=== PATIENT | female | born 1995 | race African-American/Black ===

== ENCOUNTER → 2018-10-02 | Outpatient (CLI) | payer OTHER ==
[2015-11-02 04:30] VITALS: BP 127/81
[~2018-10-02] MED LIST: BUTA1TAB23 PO; ONDA4TAB12 PO
[2018-10-04 19:09] LABS: ANA INTERP Positive (.)
== END | disposition home or self-care (01) ==
LOC: LAB 14:49
DX: G43.009 Migraine without aura, not intractable, without status migrainosus (principal)
CPT/HCPCS: 36415; 85651; 86038; 86140

== ENCOUNTER 2018-10-04 01:23 | Emergency (ER) | payer OTHER ==
[~2018-10-04] VITALS: Ht 160 cm; Wt 55.3 kg
--- NOTE | 2018-10-04 02:00 | PHYS DOC ---
Past History Past Medical History: Cancer, Seizure, Other Past Surgical History: No Surgical History Smoking: Cigarettes Alcohol Use: None Drug Use: Benzodiazepine, Marijuana Adult General Chief Complaint Chief Complaint: SEIZURE HPI HPI Patient is a 23-year-old female who presents with complaint of having had seizure-like activity earlier this evening. Patient describes the seizure-like activity as shaking all over, uncontrollably while she was very anxious. She states that she was aware during the entire episode. 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 Patient also complains of what she describes as severe upper abdominal pain for the last 2 months and states that she was seen by her primary provider today and was just diagnosed with irritable bowel syndrome. She states that she has had some nausea and had some diarrhea earlier today. She states that she has not had any imaging studies for her abdominal pain. She does indicate that she is on her menstrual cycle currently. She rates the pain in her abdomen at a 10 out of 10 but had just told her nurse that she had no pain at all. Review of Systems Review of Systems Constitutional: Denies fever or chills [] Respiratory: Denies cough or shortness of breath [] Cardiovascular: No additional information not addressed in HPI [] GI: Complains of abdominal pain with nausea and diarrhea [] Musculoskeletal: Denies back pain or joint pain [] Neurologic: Patient reports seizure-like activity[] All other systems were reviewed and found to be within normal limits, except as documented in this note. Current Medications Current Medications Current Medications Medications (Trade) Dose Ordered Sig/Nacho Start Time Stop Time Status Last Admin Dose Admin Ketorolac Tromethamine (Toradol 30mg Vial) 30 mg 1X ONCE 10/04/18 02:00 10/04/18 02:01 UNV Ondansetron HCl (Zofran) 4 mg 1X ONCE 10/04/18 02:00 10/04/18 02:01 UNV Sodium Chloride 1,000 ml @ 1,000 mls/hr Q1H 10/04/18 01:51 10/04/18 02:50 UNV Allergies Allergies Allergies Coded Allergies Type Severity Reaction Last Updated Verified No Known Drug Allergies 11/02/15 No Physical Exam Physical Exam Constitutional: Well developed, well nourished, no acute distress, appears anxious. [] HENT: Normocephalic, atraumatic, bilateral external ears normal, oropharynx moist, no oral exudates, nose normal. [] Eyes: PERRLA, EOMI, conjunctiva normal, no discharge. [] Neck: Normal range of motion, no tenderness, supple, no stridor. [] Cardiovascular: Regular rate and rhythm[] Lungs & Thorax: Bilateral breath sounds clear to auscultation [] Abdomen: Bowel sounds normal, soft, with reported epigastric tenderness. [] Skin: Warm, dry, no erythema, no rash. [] Extremities: No tenderness, no cyanosis, no clubbing, ROM intact, no edema. [] Neurologic: Alert and oriented X 3, no focal deficits noted. [] EKG EKG [] Radiology/Procedures Radiology/Procedures [] Impressions: PROCEDURE: CT ABD PELV W/ IV CONTRST ONLY INDICATION: upper abdominal pain, mostly epigastric, n/v diarrhea
no hx of surgeries in the abdomen
Gave Omni 300 75ml iv - no oral COMPARISON: None. TECHNIQUE: Axial CT images obtained through the abdomen and pelvis with contrast. One or more of the following individualized dose reduction techniques were utilized for this examination: 1. Automated exposure control; 2. Adjustment of the mA and/or kV according to patient size; 3. Use of iterative reconstruction technique. FINDINGS: Abdominal aorta not grossly aneurysmal. No intrahepatic bile duct dilation. The pancreas enhances. Spleen unremarkable. No left-sided hydronephrosis. No right-sided hydronephrosis. There is some heterogenous enhancement of the kidneys. Urinary bladder is partially distended. Within the right adnexa there is a low-density suspected cystic lesion measuring up to approximately 33 mm. Small free fluid in the pelvis. The suspected appendix appears filled with air without definitive adjacent inflammatory changes. IMPRESSION: 1. No hydronephrosis. 2. The appendix is air-filled without definite adjacent inflammation. 3. At the right adnexa there is a suspected cystic lesion identified. There is also a suspected calcification at the right ovary. 4. Heterogenous enhancement of the kidneys. This is most likely secondary to the phase of contrast unless there is clinical concern for a pathologic process such as pyelonephritis which would be considered less likely cause of this finding. Electronically signed by: Daisy Aleman MD (10/04/2018 4:21 AM) [facility] DICTATED AND SIGNED BY: DAISY ALEMAN MD DATE: 10/04/18 0421 Course & Med Decision Making Course & Med Decision Making Pertinent Labs and Imaging studies reviewed. (See chart for details) [] Dragon Disclaimer Dragon Disclaimer This electronic medical record was generated, in whole or in part, using a voice recognition dictation system. Departure Departure: Impression: Primary Impression: Pseudoseizure Additional Impression: Epigastric abdominal pain Disposition: HOME, SELF-CARE Condition: STABLE Referrals: BIRDIE DAVIS (PCP) Patient Instructions: Abdominal Pain, Nonepileptic Seizures Problem Qualifiers JAMEL CASTILLO Jr. DO Oct 04, 2018 02:00
[2018-10-04] MEDS ORDERED: ONDANSETRON PF 4 MG/2 ML VIAL. IV ONE (02:30)
[2018-10-04] MEDS ORDERED: IV NORMAL SALINE 1,000ML 1,000 ML IV SCH (02:30)
[2018-10-04] MEDS ORDERED: KETOROLAC 30 MG/ML VIAL. IV ONE (02:30)
[2018-10-04 02:43] LABS: BASO % 0 % (0-3); EOS % 0 % (0-3); HEMATOCRIT 37.2 % (36.0-47.0); HEMOGLOBIN 12.1 g/dL (12.0-15.5); LYMPH # 1.7 x10^3/uL (1.0-4.8); LYMPH % 30 % (24-48); MEAN CORPUSCULAR HEMOGLOBIN 30 pg (25-35); MEAN CORPUSCULAR HGB CONC 33 g/dL (31-37); MEAN CORPUSCULAR VOLUME 91 fL (79-100); MONO # 0.4 x10^3/uL (0.0-1.1); MONO % 6 % (0-9); NEUT # 3.7 x10^3uL (1.8-7.7); NEUT % 63 % (31-73); PLATELET COUNT 233 x10^3/uL (140-400); RED BLOOD COUNT 4.11 x10^6/uL (3.50-5.40); RED CELL DISTRIBUTION WIDTH 12.4 % (11.5-14.5); WHITE BLOOD COUNT 5.8 x10^3/uL (4.0-11.0)
[2018-10-04 02:47] LABS: BACTERIA,URINE 0 /HPF (0-FEW); BILIRUBIN,URINE NEG (NEG); CLARITY,URINE CLEAR; COLOR,URINE YELLOW; GLUCOSE,URINE NEG (NEG); NITRITE,URINE NEG (NEG); RBC,URINE 0 /HPF (0-2); SQUAMOUS EPITHELIAL CELL,UR FEW /LPF; UROBILINOGEN,URINE 0.2 mg/dL (0.2 mg/dL); WBC,URINE OCC /HPF (0-4)
[2018-10-04 02:52] LABS: BARBITURATES NEG (NEG); BENZODIAZEPINES NEG (NEG); CANNABINOIDS POS (NEG); COCAINE NEG (NEG); METHADONE NEG (NEG); OPIATES NEG (NEG); PHENCYCLIDINE NEG (NEG)
[2018-10-04 02:55] LABS: ALBUMIN 3.8 g/dL (3.4-5.0); ALBUMIN/GLOBULIN RATIO 1.1 (1.0-1.7); CALCIUM 9.2 mg/dL (8.5-10.1); CREATININE 0.9 mg/dL (0.6-1.0); GFR 92.3; POTASSIUM 3.8 mmol/L (3.5-5.1); TOTAL BILIRUBIN 0.2 mg/dL (0.2-1.0); TOTAL PROTEIN 7.2 g/dL (6.4-8.2)
[2018-10-04 02:56] LABS: AMPHETAMINE/METHAMPHETAMINE NEG (NEG)
[2018-10-04 03:04] LABS: U PREG PATIENT NEGATIVE (NEG)
[2018-10-04] MEDS ORDERED: CONTRAST GIVEN MC PRN (03:30)
[2018-10-04] MEDS ORDERED: IOHEXOL 300 MG/ML 75 ML VIAL. IV ONE (03:30)
--- NOTE | 2018-10-04 04:24 | RAD ---
INDICATION: upper abdominal pain, mostly epigastric, n/v diarrhea
no hx of surgeries in the abdomen
Gave Omni 300 75ml iv - no oral COMPARISON: None. TECHNIQUE: Axial CT images obtained through the abdomen and pelvis with contrast. One or more of the following individualized dose reduction techniques were utilized for this examination: 1. Automated exposure control; 2. Adjustment of the mA and/or kV according to patient size; 3. Use of iterative reconstruction technique. FINDINGS: Abdominal aorta not grossly aneurysmal. No intrahepatic bile duct dilation. The pancreas enhances. Spleen unremarkable. No left-sided hydronephrosis. No right-sided hydronephrosis. There is some heterogenous enhancement of the kidneys. Urinary bladder is partially distended. Within the right adnexa there is a low-density suspected cystic lesion measuring up to approximately 33 mm. Small free fluid in the pelvis. The suspected appendix appears filled with air without definitive adjacent inflammatory changes. IMPRESSION: 1. No hydronephrosis. 2. The appendix is air-filled without definite adjacent inflammation. 3. At the right adnexa there is a suspected cystic lesion identified. There is also a suspected calcification at the right ovary. 4. Heterogenous enhancement of the kidneys. This is most likely secondary to the phase of contrast unless there is clinical concern for a pathologic process such as pyelonephritis which would be considered less likely cause of this finding. Electronically signed by: Mj Aleman MD (10/04/2018 4:21 AM) [facility]
[2018-10-04 04:40] VITALS: BP 128/69
== END 2018-10-04 05:08 | disposition home or self-care (01) ==
LOC: ER 01:23
DX: G40.89 Other seizures (principal); R10.13 Epigastric pain; R19.7 Diarrhea, unspecified; F17.210 Nicotine dependence, cigarettes, uncomplicated
CPT/HCPCS: 36415; 74177; 80053; 80307; 81001; 81025; 83690; 85025; 96361; 96374; 96375; 99284; J1885; J2405; Q9967; J7030

== ENCOUNTER 2018-10-07 03:27 | Emergency (ER) | payer OTHER ==
[~2018-10-07] VITALS: Ht 162.6 cm; Wt 59.5 kg
--- NOTE | 2018-10-07 03:55 | ED.ADGEN ---
Past History Past Medical History: Endometriosis, Migraines, Seizure, Other Past Surgical History: No Surgical History Smoking: Cigarettes Alcohol Use: Occasionally Drug Use: None Adult General Chief Complaint Chief Complaint headache HPI HPI 23 years old female presented emergency department with the headache described as a migraine she stated that this is similar to the previous migraines usually gets associated with nausea described her headache as a throbbing headache on the left side of her head rated 10 out of 10 no neck stiffness no fever no chills no numbness no weakness she denies being Review of Systems Review of Systems Constitutional: Denies fever or chills [] Eyes: Denies change in visual acuity, redness, or eye pain [] HENT: Denies nasal congestion or sore throat [] Respiratory: Denies cough or shortness of breath [] Cardiovascular: No additional information not addressed in HPI [] GI: Denies abdominal pain, nausea, vomiting, bloody stools or diarrhea [] : Denies dysuria or hematuria [] Musculoskeletal: Denies back pain or joint pain [] Integument: Denies rash or skin lesions [] Neurologic: Denies focal weakness or sensory changes [] Endocrine: Denies polyuria or polydipsia [] All other systems were reviewed and found to be within normal limits, except as documented in this note. Current Medications Current Medications Current Medications Medications (Trade) Dose Ordered Sig/Nacho Start Time Stop Time Status Last Admin Dose Admin Diphenhydramine HCl (Benadryl) 25 mg 1X ONCE 10/07/18 04:00 10/07/18 04:01 UNV Ketorolac Tromethamine (Toradol Im) 60 mg 1X ONCE 10/07/18 04:00 10/07/18 04:01 UNV Prochlorperazine Edisylate (Compazine) 10 mg 1X ONCE 10/07/18 04:00 10/07/18 04:01 UNV Allergies Allergies Allergies Coded Allergies Type Severity Reaction Last Updated Verified No Known Drug Allergies 10/07/18 No Physical Exam Physical Exam Constitutional: Well developed, well nourished, no acute distress, non-toxic appearance. [] HENT: Normocephalic, atraumatic, bilateral external ears normal, oropharynx moist, no oral exudates, nose normal. [] Eyes: PERRLA, EOMI, conjunctiva normal, no discharge. [] Neck: Normal range of motion, no tenderness, supple, no stridor. [] Cardiovascular:Heart rate regular rhythm, no murmur [] Lungs & Thorax: Bilateral breath sounds clear to auscultation [] Abdomen: Bowel sounds normal, soft, no tenderness, no masses, no pulsatile masses. [] Skin: Warm, dry, no erythema, no rash. [] Back: No tenderness, no CVA tenderness. [] Extremities: No tenderness, no cyanosis, no clubbing, ROM intact, no edema. [] Neurologic: Alert and oriented X 3, normal motor function, normal sensory function, no focal deficits noted. [] Psychologic: Affect normal, judgement normal, mood normal. [] EKG EKG [] Radiology/Procedures Radiology/Procedures [] Course & Med Decision Making Course & Med Decision Making Pertinent Labs and Imaging studies reviewed. (See chart for details) [] Final Impression Final Impression [] Problems: (1) Migraine Qualifiers: Qualified Codes: G43.909 - Migraine, unspecified, not intractable, without status migrainosus Dragon Disclaimer Dragon Disclaimer This electronic medical record was generated, in whole or in part, using a voice recognition dictation system. CRUZ ACHARYA MD Oct 07, 2018 03:55
[2018-10-07] MEDS ORDERED: diphenhydrAMINE 50 MG/ML VIAL IM ONE (04:00)
[2018-10-07] MEDS ORDERED: PROCHLORPERAZINE 10 MG/2 ML VIAL. IM ONE (04:00)
[2018-10-07] MEDS ORDERED: KETOROLAC 60 MG/2 ML VIAL. IM ONE (04:00)
[2018-10-07 04:25] VITALS: BP 123/86
== END 2018-10-07 04:30 | disposition home or self-care (01) ==
LOC: ER 03:27
DX: G43.909 Migraine, unspecified, not intractable, without status migrainosus (principal); F17.210 Nicotine dependence, cigarettes, uncomplicated
CPT/HCPCS: 96372; 99283; J0780; J1200; J1885

== ENCOUNTER 2018-11-14 23:26 | Emergency (ER) | payer OTHER ==
[~2018-11-14] VITALS: Ht 162.6 cm; Wt 56.7 kg
[2018-11-14 23:26] VITALS: BP 153/96
[2018-11-15] MEDS ORDERED: ONDA4TAB12 PO (00:10)
[2018-11-15] MEDS ORDERED: BUTA1TAB23 PO (00:10)
--- NOTE | 2018-11-15 00:10 | PHYS DOC ---
Past History Past Medical History: Endometriosis, IBS, Migraines, Seizure Past Surgical History: No Surgical History Smoking: Cigarettes Alcohol Use: None Drug Use: None Adult General Chief Complaint Chief Complaint: HEADACHE HPI HPI 23-year-old female presents with report of progressive ongoing headache since 11/03/2017. Patient reports it waxes and wanes in intensity. Reports some associated nausea. Denies known trauma. Patient does have history of chronic migraines. Patient reports tonight her headache is consistent for her known chronic migraine. Reports using home prescriptions without improvement. Patient also reports history of known to a pituitary lesion which is been imaged pre viously. Patient reports she currently has a neurologist, Dr. Bunn, at [facility] who prescribes her medications. Reports she has discussed her ongoing headaches with him and he reports he has "no other treatment options" at this time. Patient is seeking secondary opinion with [facility] but is waiting for her appointment. Patient denies any trauma. Denies neck pain.. Denies fever or chills. Patient does report her headache seemed to be timed around her menstrual cycle. Patient reports she is currently on her menstrual cycle. Review of Systems Review of Systems Constitutional: Denies fever or chills [] Eyes: Denies change in visual acuity or redness; reports photophobia HENT: Denies nasal congestion or sore throat [] Respiratory: Denies cough or shortness of breath [] Cardiovascular: Denies chest pain or palpitations GI: Denies abdominal pain, vomiting, or diarrhea; reports nausea : Denies dysuria or hematuria [] Musculoskeletal: Denies back pain or joint pain [] Integument: Denies rash or skin lesions [] Neurologic: Reports headache; denies focal weakness or sensory changes [] Complete systems were reviewed and found to be within normal limits, except as documented in this note. Allergies Allergies Allergies Coded Allergies Type Severity Reaction Last Updated Verified No Known Drug Allergies 10/07/18 No Physical Exam Physical Exam Constitutional: Well developed, well nourished, no acute distress, non-toxic appearance. [] HENT: Normocephalic, atraumatic, oropharynx moist Eyes:EOMI, conjunctiva normal, no discharge, photophobia Neck: Normal range of motion, no tenderness, supple Cardiovascular: Heart rate regular rhythm Lungs & Thorax: Bilateral breath sounds clear to auscultation [] Abdomen: Soft, no tenderness Skin: Warm, dry, no erythema, no rash. [] Back: No tenderness, no CVA tenderness. [] Extremities: No tenderness, ROM intact, no edema. [] Neurologic: Alert and oriented X 3, normal motor function, normal sensory function, no focal deficits noted. [] Psychologic: Affect normal, judgement normal Current Patient Data Vital Signs Vital Signs Date Time Temp Pulse Resp B/P (MAP) Pulse Ox O2 Delivery O2 Flow Rate FiO2 11/14/18 23:26 98.2 102 14 100 Room Air EKG EKG [] Radiology/Procedures Radiology/Procedures [] Course & Med Decision Making Course & Med Decision Making Patient presents with report of acute on chronic migraine headache. Patient reports her current headache is consistent with her known migraine. Denies known trauma. Patient neurologically intact. Patient is afebrile. No meningeal signs appreciated. Symptomatic treatment provided. Patient stable for discharge with outpatient follow-up with PCP/neurologist. Discussed findings and plan with patient, who acknowledges understanding and agreement. Dragon Disclaimer Dragon Disclaimer This electronic medical record was generated, in whole or in part, using a voice recognition dictation system. Departure Departure: Impression: Primary Impression: Headache Disposition: HOME, SELF-CARE Condition: STABLE Referrals: BIRDIE DAVIS (PCP) Patient Instructions: Migraine Headache, [id number] Scripts Ondansetron (ONDANSETRON ODT) 4 Mg Tab.rapdis 1 TAB PO PRN Q6-8HRS for NAUSEA, #16 TAB Prov: OWEN MONTES DO 11/15/18 Butalb/Acetaminophen/Caffeine ([id number] 50-325-40) 1 Each Tablet 1 EACH PO Q6HRS PRN for HEADACHE, #14 TAB Prov: OWEN MONTES DO 11/15/18 Problem Qualifiers Primary Impression: Headache Headache type: unspecified Headache chronicity pattern: acute headache Intractability: not intractable Qualified Codes: R51 - Headache OWEN MONTES DO November 15, 2018 00:10
[2018-11-15] MEDS ORDERED: BUTALB/APAP/CAFEIN 50/325/40MG TABLET. PO ONE (00:30)
[2018-11-15] MEDS ORDERED: DEXAMETHASONE 4 MG TABLET PO ONE (00:30)
[2018-11-15] MEDS ORDERED: KETOROLAC 30 MG/ML VIAL. IM ONE (00:30)
[2018-11-15] MEDS ORDERED: ONDANSETRON ODT 4 MG TAB.RAPDIS PO ONE (00:30)
== END 2018-11-15 00:45 | disposition home or self-care (01) ==
LOC: ER 23:26
DX: R51 Headache (principal); G43.909 Migraine, unspecified, not intractable, without status migrainosus; K58.9 Irritable bowel syndrome, unspecified; F17.210 Nicotine dependence, cigarettes, uncomplicated
CPT/HCPCS: 96372; 99284; J1885; J8540; Q0162

== ENCOUNTER 2019-09-26 06:10 | Emergency (ER) | payer OTHER ==
[~2019-09-26] VITALS: Ht 162.6 cm; Wt 63.3 kg
[2019-09-26 06:17] VITALS: BP 143/90
[2019-09-26] MEDS ORDERED: IV NORMAL SALINE 1,000ML 1,000 ML IV ONE (06:45)
[2019-09-26] MEDS ORDERED: diphenhydrAMINE 50 MG/ML VIAL IVP ONE (06:45)
[2019-09-26] MEDS ORDERED: DEXAMETHASONE SOD PHOS 4 MG/ML VIAL IVP ONE (06:45)
[2019-09-26] MEDS ORDERED: METOCLOPRAMIDE HCL 10 MG/2 ML VIAL. IVP ONE (06:45)
[2019-09-26] MEDS ORDERED: KETOROLAC 15 MG/ML VIAL. IVP ONE (06:45)
[2019-09-26] MEDS ORDERED: ONDA4TAB12 PO (06:57)
[2019-09-26] MEDS ORDERED: BUTA1TAB23 PO (06:57)
--- NOTE | 2019-09-26 06:57 | PHYS DOC ---
Past History Past Medical History: Endometriosis, IBS, Migraines, Seizure, TIA Additional Past Medical Histor: coratid artery, pituitary tumor Past Surgical History: No Surgical History Smoking: Cigarettes Alcohol Use: None Drug Use: None Adult General Chief Complaint Chief Complaint: HEADACHE HPI HPI 23-year-old female presents with report of progressive ongoing headache for last week. Reports chronic migraine headaches and history of known pituitary lesion. Reports symptoms today are the same as her prior headaches. Patient follows milvia Chairez, neurology. Reports her migraines seem to correlate with her menstrual periods. Reports she is currently on her menstrual cycle. Patient reports it waxes and wanes in intensity. Reports some associated nausea and photophobia. Also reports sensitivity to sounds. Denies known trauma. Reports using home prescriptions without improvement. Review of Systems Review of Systems Constitutional: Denies fever or chills; reports malaise Eyes: Denies redness or eye pain HENT: Denies nasal congestion or sore throat Respiratory: Denies cough or shortness of breath Cardiovascular: Denies chest pain or palpitations GI: Denies abdominal pain or vomiting; reports nausea : Denies dysuria or hematuria Musculoskeletal: Denies neck pain or joint pain Integument: Denies rash or skin lesions Neurologic: Reports headache; denies focal weakness or sensory changes Complete systems were reviewed and found to be within normal limits, except as documented in this note. Current Medications Current Medications Current Medications Medications (Trade) Dose Ordered Sig/Nacho Start Time Stop Time Status Last Admin Dose Admin Dexamethasone Sodium Phosphate (Decadron) 10 mg 1X ONCE 09/26/19 06:45 09/26/19 06:46 UNV Diphenhydramine HCl (Benadryl) 25 mg 1X ONCE 09/26/19 06:45 09/26/19 06:46 UNV Ketorolac Tromethamine (Toradol 15mg Vial) 15 mg 1X ONCE 09/26/19 06:45 09/26/19 06:46 UNV Metoclopramide HCl (Reglan Vial) 10 mg 1X ONCE 09/26/19 06:45 09/26/19 06:46 UNV Sodium Chloride 1,000 ml @ 1,000 mls/hr 1X ONCE 09/26/19 06:45 09/26/19 07:44 UNV Allergies Allergies Allergies Coded Allergies Type Severity Reaction Last Updated Verified No Known Drug Allergies 10/07/18 No Physical Exam Physical Exam Constitutional: Well developed, well nourished, uncomfortable HENT: Normocephalic, atraumatic, oropharynx moist Eyes: PERRL, EOMI, conjunctiva normal, no discharge Neck: Normal range of motion, no tenderness, supple, no meningeal signs Cardiovascular: Heart rate normal, regular rhythm Lungs & Thorax: Bilateral breath sounds clear to auscultation, no wheezing Abdomen: Soft, no tenderness Skin: Warm, dry, no erythema, no rash Extremities: No tenderness, ROM intact, no edema Neurologic: Alert and oriented X 3, normal motor function, normal sensory f unction, no focal deficits noted Psychologic: Affect normal, judgment normal Current Patient Data Vital Signs Vital Signs Date Time Temp Pulse Resp B/P (MAP) Pulse Ox O2 Delivery O2 Flow Rate FiO2 09/26/19 06:17 98.2 87 16 143/90 (107) 96 Room Air EKG EKG [] Radiology/Procedures Radiology/Procedures [] Course & Med Decision Making Course & Med Decision Making Patient presents with acute on chronic migraine headaches. Patient does have a history of pituitary tumor. Reports her neurologist is getting approval from insurance to perform repeat MRI and CT angiogram. Patient reports current symptoms are same as prior episodes. We will hold radiologic imaging at this time. Patient neurologically intact. No history of trauma. No meningeal signs. Afebrile. Patient denies . Symptomatic treatment provided with interval improvement of symptoms. Patient stable for discharge with outpatient follow-up with PCP/neurology. Discussed findings and plan with patient, who acknowledges understanding and agreement. Dragon Disclaimer Dragon Disclaimer This electronic medical record was generated, in whole or in part, using a voice recognition dictation system. Departure Departure: Impression: Primary Impression: Headache Disposition: HOME, SELF-CARE Condition: IMPROVED Referrals: BIRDIE DAVIS (PCP) JESUSITA CHAIREZ MD Patient Instructions: Recurrent Migraine Headache, [id number] Scripts Ondansetron (ONDANSETRON ODT) 4 Mg Tab.rapdis 1 TAB PO PRN Q6-8HRS PRN for NAUSEA, #16 TAB Prov: OWEN MONTES DO 09/26/19 Butalb/Acetaminophen/Caffeine ([id number] 50-325-40) 1 Each Tablet 1 EACH PO Q6HRS PRN for HEADACHE, #14 TAB Prov: OWEN MONTES DO 09/26/19 Problem Qualifiers Primary Impression: Headache Headache type: unspecified Headache chronicity pattern: episodic headache Intractability: intractable Qualified Codes: R51 - Headache OWEN MONTES DO Sep 26, 2019 06:57
== END 2019-09-26 07:40 | disposition home or self-care (01) ==
LOC: ER 06:10
DX: G43.909 Migraine, unspecified, not intractable, without status migrainosus (principal); K58.9 Irritable bowel syndrome, unspecified; F17.210 Nicotine dependence, cigarettes, uncomplicated; Z86.73 Personal history of transient ischemic attack (TIA), and cerebral infarction without residual deficits
CPT/HCPCS: 96374; 96375; 99284; J1100; J1200; J1885; J2765; J7030

== ENCOUNTER 2019-11-08 05:19 | Emergency (ER) | payer OTHER ==
[~2019-11-08] VITALS: Ht 162.6 cm; Wt 63.3 kg
[2019-11-08] MEDS ORDERED: FAMO-63 PO (05:56)
--- NOTE | 2019-11-08 05:56 | PHYS DOC ---
Past History Past Medical History: Anxiety, Depression, Endometriosis, IBS, Migraines, Seizure, TIA Additional Past Medical Histor: carotid artery pituitary tumor Past Surgical History: No Surgical History Smoking: Cigarettes Alcohol Use: None Drug Use: None General Adult EDM: Chief Complaint: ANXIETY/PANIC ATTACK HPI: HPI: 24 year old female presents with multiple complaints. Reports main complaint is burning chest pain which started earlier this AM. Patient reports she does have a history of IBS and took some bentyl and some peptobismal without improvement. Denies nausea or vomiting. Reports she started to have some bilateral leg tingling when she was having this pain. Reports concern because she was told she has previously had a stroke based on a recent brain MRI. Denies any defic it. Reports history of pituitary tumor and has frequent headaches. Denies trauma. Reports she had a headache last night but it is currently resolved. Reports she also has a history of anxiety. Denies drug use. Denies . Review of Systems: Review of Systems: Constitutional: Denies fever or chills Eyes: Denies redness or eye pain HENT: Denies nasal congestion or sore throat Respiratory: Denies cough or shortness of breath Cardiovascular: Reports burning chest pain; denies palpitations GI: Denies abdominal pain, nausea, or vomiting : Denies dysuria or hematuria Musculoskeletal: Denies back pain or joint pain Integument: Denies rash or skin lesions Neurologic: Reports bilateral lower extremity "tingling" and resolved headache Complete systems were reviewed and found to be within normal limits, except as documented in this note. Heart Score: HEART Score for Chest Pain: HEART Score for Chest Pain Response (Comments) Value History Slighlty/Non-Suspicious 0 Age < 45 0 Risk Factors 1 or 2 Risk Factors 1 Total 1 Risk Factors: Risk Factors: DM, Current or recent (<one month) smoker, HTN, HLP, family history of CAD, obesity. Risk Scores: Score 0 - 3: 2.5% MACE over next 6 weeks - Discharge Home Score 4 - 6: 20.3% MACE over next 6 weeks - Admit for Clinical Observation Score 7 - 10: 72.7% MACE over next 6 weeks - Early Invasive Strategies Allergies: Allergies: Allergies Coded Allergies Type Severity Reaction Last Updated Verified No Known Drug Allergies 10/07/18 No Physical Exam: PE: Constitutional: Well developed, well nourished, anxious, non-toxic appearance HENT: Normocephalic, atraumatic, oropharynx moist Eyes: PERRL, EOMI, conjunctiva normal, no discharge Neck: Normal range of motion, no tenderness, supple Cardiovascular: Heart rate normal, regular rhythm Lungs & Thorax: Bilateral breath sounds clear to auscultation, no wheezing Abdomen: Soft, no tenderness Skin: Warm, dry, no erythema, no rash Extremities: No tenderness, ROM intact, no edema Neurologic: Alert and oriented X 3, normal motor function, normal sensory function, no focal deficits noted Psychologic: Affect anxious, judgment normal Current Patient Data: Vital Signs: Vital Signs Date Time Temp Pulse Resp B/P (MAP) Pulse Ox O2 Delivery O2 Flow Rate FiO2 11/08/19 05:19 98.3 104 18 144/68 (93) 100 Room Air EKG: EKG: [] Radiology/Procedures: Radiology/Procedures: [] Course & Med Decision Making: Course & Med Decision Making Patient presents with history of present illness and physical exam which sounds consistent for gastritis/GERD. Patient reports burning sensation in her chest. Patient also appears to have some anxiety component. Patient does have history of anxiety. NIHSS 0. Patient with very low risk factors for cardiac disease. No clinical signs of PE/DVT. GI cocktail provided with interval improvement. Will prescribe medication for anxiety. Patient stable for discharge with outpatient follow-up with PCP/GI/neurology. Discussed findings and plan with patient, who acknowledges understanding and agreement. Dawood Disclaimer: Dawood Disclaimer: This electronic medical record was generated, in whole or in part, using a voice recognition dictation system. Departure Departure: Impression: Primary Impression: Atypical chest pain Additional Impression: Anxiety Disposition: 01 HOME, SELF-CARE Condition: STABLE Referrals: BIRDIE DAVIS (PCP) Patient Instructions: Anxiety and Panic Attacks, [id number], Gastritis, Adult, [id number] Scripts Lorazepam (ATIVAN) 0.5 Mg Tablet 0.5 MG PO Q8HRS PRN for ANXIETY, #10 TAB Prov: OWEN MONTES DO 11/08/19 Famotidine (PEPCID) 20 Mg Tablet 1 TAB PO BID for Gastritis, #30 TAB Prov: OWEN MONTES DO 11/08/19 NIHSS - ED NIH Stroke Scale: NIH Stroke Scale Response (Comments) Value Level of Consciousness: 0 Alert/Responsive 0 LOC Questions: 0 Answers both correctly 0 LOC Commands: 0 Performs both tasks 0 Best Gaze: 0 Normal 0 Visual: 0 No visual loss 0 Facial Palsy: 0 Normal, symmetrical 0 Motor - Left Arm 0 No drift 0 Motor - Right Arm 0 No drift 0 Motor - Left Leg 0 No drift 0 Motor: Right Leg 0 No drift 0 Limb Ataxia: 0 Absent 0 Sensory: 0 No loss 0 Best Language: 0 Normal 0 Dysathria: 0 Normal 0 Extinction and Inattention: 0 Normal 0 Total 0 MONTES,OWEN Cueto DO Nov 08, 2019 05:56
[2019-11-08] MEDS ORDERED: LORA0.5T96 PO (06:04)
[2019-11-08] MEDS: LIDO:MAALOX 1:1 20 ML SINGLE DOSE. PO ONE (06:05)
[2019-11-08 06:15] VITALS: BP 126/83
== END 2019-11-08 06:15 | disposition home or self-care (01) ==
LOC: ER 05:19
DX: R07.89 Other chest pain (principal); F41.9 Anxiety disorder, unspecified; F32.9 Major depressive disorder, single episode, unspecified; K58.9 Irritable bowel syndrome, unspecified; G43.909 Migraine, unspecified, not intractable, without status migrainosus; F17.210 Nicotine dependence, cigarettes, uncomplicated; Z86.73 Personal history of transient ischemic attack (TIA), and cerebral infarction without residual deficits
CPT/HCPCS: 99283

== ENCOUNTER → 2019-12-05 | Outpatient (CLI) | payer OTHER ==
[2019-11-08 06:15] VITALS: BP 126/83
[~2019-12-05] MED LIST changes: +FAMO-63 PO; +LORA0.5T96 PO
--- NOTE | 2019-12-05 15:31 | RAD ---
EXAM: ABDOMEN SUPINE UPRIGHT 12/05/2019 12:00 AM CLINICAL INDICATION:Abdominal pain COMPARISON:None TECHNIQUE:AP supine and upright views of abdomen FINDINGS:Normal bowel gas pattern and normal volume of stool. No evidence of small bowel obstruction. Lung bases are clear. No pneumoperitoneum on upright view. No abnormal calcifications. Bones are normal. IMPRESSION:Normal abdominal radiograph. Electronically signed by: Doris Montiel MD (12/05/2019 3:28 PM) [id number]
== END ==
LOC: RAD 15:00
PROVIDERS: ATTEND Physician Assistant
DX: K58.9 Irritable bowel syndrome, unspecified (principal); R10.13 Epigastric pain; R11.0 Nausea
CPT/HCPCS: 74019

== ENCOUNTER → 2019-12-19 | Outpatient (CLI) | payer OTHER ==
[~2019-12-19] MED LIST changes: +LORA0.5T21 PO; -LORA0.5T96 PO; +ONDA8TAB9 PO; +OXYC1TAB15 PO
--- NOTE | 2019-12-19 14:06 | RAD ---
EXAM: ABDOMINAL ULTRASOUND. HISTORY: Epigastric abdominal pain and nausea.. COMPARISON: Abdomen x-ray series of 12/05/2019. FINDINGS: Sonographic evaluation of the abdomen was performed. The liver appears normal in parenchymal echotexture. There are no focal lesions. The spleen measures 8 cm. The gallbladder is unremarkable without evidence of stones, wall thickening or pericholecystic fluid. There is no sonographic Omer sign. The common duct measures 2 mm. The visualized portions of the head of the pancreas reveal no abnormality. The right kidney measures 10.6 x 5.7 x 3.8 cm. Cortical thickness and echogenicity are preserved. There is no hydronephrosis. The left kidney measures 8.4 x 6.2 x 5.2 cm. Cortical thickness and echogenicity are preserved. There is no hydronephrosis. The visualized portions of the abdominal aorta and inferior vena cava are grossly patent and normal in caliber. IMPRESSION: 1. Left kidney appears slightly smaller than the right. Otherwise the abdomen and pelvis ultrasound exam is unremarkable. Electronically signed by: Gabino Gamez MD (12/19/2019 2:03 PM) [id number]
== END | disposition home or self-care (01) ==
LOC: US 08:41
PROVIDERS: ATTEND Physician Assistant
DX: K58.9 Irritable bowel syndrome, unspecified (principal)
CPT/HCPCS: 76700

== ENCOUNTER 2020-03-04 21:33 | Emergency (ER) | payer OTHER ==
[~2020-03-04] VITALS: Ht 162.6 cm; Wt 60.2 kg
[~2020-03-04 21:33] MED LIST changes: -ONDA8TAB9 PO; -OXYC1TAB15 PO
[2020-03-04] MEDS ORDERED: IV NORMAL SALINE 1,000ML 1,000 ML IV ONE (21:45)
--- NOTE | 2020-03-04 21:54 | EKG ---
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
[2020-03-04 22:03] LABS: BASO % 0 % (0-3); EOS # 0.1 x10^3/uL (0.0-0.7); EOS % 1 % (0-3); HEMATOCRIT 39.9 % (36.0-47.0); HEMOGLOBIN 13.2 g/dL (12.0-15.5); LYMPH # 4.3 x10^3/uL (1.0-4.8); LYMPH % 50 % (24-48); MEAN CORPUSCULAR HEMOGLOBIN 31 pg (25-35); MEAN CORPUSCULAR HGB CONC 33 g/dL (31-37); MEAN CORPUSCULAR VOLUME 93 fL (79-100); MONO # 0.7 x10^3/uL (0.0-1.1); MONO % 8 % (0-9); NEUT # 3.6 x10^3uL (1.8-7.7); NEUT % 41 % (31-73); PLATELET COUNT 225 x10^3/uL (140-400); RED BLOOD COUNT 4.31 x10^6/uL (3.50-5.40); WHITE BLOOD COUNT 8.7 x10^3/uL (4.0-11.0)
[2020-03-04 22:10] LABS: CALCIUM 9.2 mg/dL (8.5-10.1); CREATININE 1.1 mg/dL (0.6-1.0); GFR 72.6; POTASSIUM 3.8 mmol/L (3.5-5.1)
[2020-03-04 22:16] LABS: ALBUMIN 4.1 g/dL (3.4-5.0); ALBUMIN/GLOBULIN RATIO 1.2 (1.0-1.7); TOTAL BILIRUBIN 0.2 mg/dL (0.2-1.0); TOTAL PROTEIN 7.5 g/dL (6.4-8.2)
--- NOTE | 2020-03-04 22:28 | PHYS DOC ---
Past History Past Medical History: Anxiety, Depression, Endometriosis, IBS, Migraines, Seizure, TIA Additional Past Medical Histor: carotid artery pituitary tumor Past Surgical History: No Surgical History Smoking: Cigarettes Alcohol Use: None Drug Use: None General Adult EDM: Chief Complaint: MULTIPLE COMPLAINTS HPI: HPI: 24-year-old female presents with headache, neck pain, back cramps. The patient has had headache for over a month. She has had a history of migraines her entire life. She saw neurologist last week. She has some further testing scheduled. She is on Topamax but has not very pruritic this headache. Today she has been seeing spots and feels like she has a burning sensation in her cervical's paraspinal muscles. She may have had a short spell of syncope today. She is concerned about having another 1. She has had these before from headaches. She not sure what else to do. She denies fever chills. No specific COVID-19 risk factors. She denies trauma or falls. She has been eating and drinking normally. Review of Systems: Review of Systems: Constitutional: Denies fever or chills Eyes: Visual disturbance HENT: Denies nasal congestion or sore throat Respiratory: Denies cough or shortness of breath Cardiovascular: Denies chest pain or edema GI: Denies abdominal pain, nausea, vomiting, bloody stools or diarrhea : Denies dysuria Musculoskeletal: Cervical muscle pain Integument: Denies rash Neurologic: Headache. denies focal weakness or sensory changes Endocrine: Denies polyuria or polydipsia Lymphatic: Denies swollen glands Psychiatric: Denies depression or anxiety Heart Score: Risk Factors: Risk Factors: DM, Current or recent (<one month) smoker, HTN, HLP, family history of CAD, obesity. Risk Scores: Score 0 - 3: 2.5% MACE over next 6 weeks - Discharge Home Score 4 - 6: 20.3% MACE over next 6 weeks - Admit for Clinical Observation Score 7 - 10: 72.7% MACE over next 6 weeks - Early Invasive Strategies Current Medications: Current Meds: Current Medications Medications (Trade) Dose Ordered Sig/Nacho Start Time Stop Time Status Last Admin Dose Admin Sodium Chloride 1,000 ml @ 1,000 mls/hr 1X ONCE 03/04/20 21:45 03/04/20 22:44 03/04/20 21:51 1,000 MLS/HR Allergies: Allergies: Allergies Coded Allergies Type Severity Reaction Last Updated Verified No Known Drug Allergies 10/07/18 No Physical Exam: PE: Constitutional: Well developed, well nourished, no acute distress, non-toxic appearance. [] HENT: Normocephalic, atraumatic, bilateral external ears normal, oropharynx moist, no oral exudates, nose normal. [] Eyes: PERRLA, EOMI, conjunctiva normal, no discharge. [] Neck: Prominent thyroid, tenderness and muscle spasm of the trapezius bilaterall y [] Cardiovascular: Heart rate 130s, regular rhythm, no murmur [] Lungs & Thorax: Bilateral breath sounds clear to auscultation [] Abdomen: Bowel sounds normal, soft, no tenderness, no masses, no pulsatile masses. [] Skin: Warm, dry, no erythema, no rash. [] Back: No tenderness, no CVA tenderness. [] Extremities: No tenderness, no cyanosis, no clubbing, ROM intact, no edema. [] Neurologic: Alert and oriented X 3, normal motor function, normal sensory function, no focal deficits noted. [] Psychologic: Affect normal, judgement normal, mood anxious. [] Current Patient Data: Labs: Laboratory Tests Test 03/04/20 21:45 White Blood Count 8.7 x10^3/uL (4.0-11.0) Red Blood Count 4.31 x10^6/uL (3.50-5.40) Hemoglobin 13.2 g/dL (12.0-15.5) Hematocrit 39.9 % (36.0-47.0) Mean Corpuscular Volume 93 fL (79-100) Mean Corpuscular Hemoglobin 31 pg (25-35) Mean Corpuscular Hemoglobin Concent 33 g/dL (31-37) Red Cell Distribution Width 13.0 % (11.5-14.5) Platelet Count 225 x10^3/uL (140-400) Neutrophils (%) (Auto) 41 % (31-73) Lymphocytes (%) (Auto) 50 % (24-48) H Monocytes (%) (Auto) 8 % (0-9) Eosinophils (%) (Auto) 1 % (0-3) Basophils (%) (Auto) 0 % (0-3) Neutrophils # (Auto) 3.6 x10^3uL (1.8-7.7) Lymphocytes # (Auto) 4.3 x10^3/uL (1.0-4.8) Monocytes # (Auto) 0.7 x10^3/uL (0.0-1.1) Eosinophils # (Auto) 0.1 x10^3/uL (0.0-0.7) Basophils # (Auto) 0.0 x10^3/uL (0.0-0.2) Sodium Level 142 mmol/L (136-145) Potassium Level 3.8 mmol/L (3.5-5.1) Chloride Level 105 mmol/L (98-107) Carbon Dioxide Level 25 mmol/L (21-32) Anion Gap 12 (6-14) Blood Urea Nitrogen 8 mg/dL (7-20) Creatinine 1.1 mg/dL (0.6-1.0) H Estimated GFR (Cockcroft-Gault) 72.6 BUN/Creatinine Ratio 7 (6-20) Glucose Level 143 mg/dL (70-99) H Calcium Level 9.2 mg/dL (8.5-10.1) Total Bilirubin 0.2 mg/dL (0.2-1.0) Aspartate Amino Transferase (AST) 17 U/L (15-37) Alanine Aminotransferase (ALT) 25 U/L (14-59) Alkaline Phosphatase 42 U/L (46-116) L Troponin I Quantitative < 0.017 ng/mL (0-0.055) Total Protein 7.5 g/dL (6.4-8.2) Albumin 4.1 g/dL (3.4-5.0) Albumin/Globulin Ratio 1.2 (1.0-1.7) Vital Signs: Vital Signs Date Time Temp Pulse Resp B/P (MAP) Pulse Ox O2 Delivery O2 Flow Rate FiO2 03/04/20 21:34 97.9 140 28 146/87 (106) 100 Room Air EKG: EKG: [] Radiology/Procedures: Radiology/Procedures: [] Course & Med Decision Making: Course & Med Decision Making Pertinent Labs and Imaging studies reviewed. (See chart for details) The patient's labs are unremarkable. Her urine drug screen is positive for marijuana. I have given her 1 L normal saline, 30 mg of Toradol, 50 mg of Benadryl, and 10 mg of Reglan for her headache. Her headache is not gone, but is significantly better at this time. She feels ready to go home. She is stable for discharge at this time. [] Dawood Disclaimer: Dawood Disclaimer: This electronic medical record was generated, in whole or in part, using a voice recognition dictation system. Departure Departure: Impression: Primary Impression: Headache Qualified Codes: R51 - Headache Additional Impression: Dizzy spells Disposition: HOME/RESIDENCE PRIOR TO ADM Condition: STABLE Referrals: BIRDIE DAVIS (PCP) Patient Instructions: Recurrent Migraine Headache, [id number] Justification of Admission: Justification of Admission: Justification of Admission Dx: N/A LALITHA MOYA DO Mar 04, 2020 22:28
[2020-03-04] MEDS ORDERED: diphenhydrAMINE 50 MG/ML VIAL IVP ONE (22:30)
[2020-03-04] MEDS ORDERED: METOCLOPRAMIDE HCL 10 MG/2 ML VIAL. IVP ONE (22:30)
[2020-03-04] MEDS ORDERED: KETOROLAC 30 MG/ML VIAL. IVP ONE (22:30)
[2020-03-04 22:47] LABS: BARBITURATES NEG (NEG); BENZODIAZEPINES NEG (NEG); CANNABINOIDS POS (NEG); COCAINE NEG (NEG); METHADONE NEG (NEG); OPIATES NEG (NEG); PHENCYCLIDINE NEG (NEG)
[2020-03-04 22:48] LABS: BACTERIA,URINE 0 /HPF (0-FEW); BILIRUBIN,URINE NEG (NEG); CLARITY,URINE HAZY; COLOR,URINE YELLOW; GLUCOSE,URINE 100 mg/dL (NEG); NITRITE,URINE NEG (NEG); SQUAMOUS EPITHELIAL CELL,UR MOD /LPF; WBC,URINE OCC /HPF (0-4)
[2020-03-04 22:51] LABS: AMPHETAMINE/METHAMPHETAMINE NEG (NEG)
[2020-03-04 23:55] VITALS: BP 107/55
== END 2020-03-05 00:11 | disposition home or self-care (01) ==
LOC: ER 21:33
DX: G43.909 Migraine, unspecified, not intractable, without status migrainosus (principal); R42 Dizziness and giddiness; M62.838 Other muscle spasm; F41.9 Anxiety disorder, unspecified; F32.9 Major depressive disorder, single episode, unspecified; K58.9 Irritable bowel syndrome, unspecified; F17.210 Nicotine dependence, cigarettes, uncomplicated
CPT/HCPCS: 36415; 80053; 80307; 81001; 81025; 84484; 85025; 93005; 96361; 96374; 96375; 99284; J1200; J1885; J2765; J7030; 99285-25

== ENCOUNTER 2020-03-09 00:49 | Emergency (ER) | payer OTHER ==
[~2020-03-09] VITALS: Ht 162.6 cm; Wt 61.5 kg
--- NOTE | 2020-03-09 00:52 | PHYS DOC ---
Past History Past Medical History: Anxiety, Depression, Endometriosis, IBS, Migraines, Seizure, TIA Additional Past Medical Histor: carotid artery changes on Lt. , pituitary tumor Past Surgical History: No Surgical History Smoking: Cigarettes Alcohol Use: None Drug Use: None, Marijuana General Adult HPI: HPI: " I am having another one of my headaches.. and some dizzy spells.. I usually come in for some headache meds.. I ve been here several time for my migraines..." Patient is a 24 year old female who presents with above hx and complaints of headache associated with some dizziness at times. Patient is a very history of previous migraines. Also gives a history of a possible pituitary tumor and an abnormal carotid on the left from her MRI in 2006 at . Patient denies any travel. Patient denies any specific ill contacts. Patient does smoke marijuana and tobacco. Patient recently seen here in the emergency room on 03/04 for migraine headache. Patient does have a history of endometriosis seizure disorder, anemia, tobacco marijuana use, and anxiety. No recent travel outside [facility]. No specific ill contacts. No history of trauma. Patient states normal migraine never seemed to help. Patient states IV Toradol, nausea meds and Benadryl has helped in the past has helped with her pain. Patient normally follows with Dr. Davis. Does have scheduled follow-up appointments with both neurology with Dr. Kirby and her primary Jessi. Review of Systems: Review of Systems: Constitutional: Denies fever or chills Eyes: Denies change in visual acuity HENT: Denies nasal congestion or sore throat Respiratory: Denies cough or shortness of breath Cardiovascular: Denies chest pain or edema GI: Denies abdominal pain, vomiting, bloody stools or diarrhea. Complains of nausea : Denies dysuria Musculoskeletal: Denies back pain or joint pain Integument: Denies rash Neurologic: Complains of generalized headache. Denies any, focal weakness or sensory changes . Patient does have some mild dizziness. Endocrine: Denies polyuria or polydipsia Lymphatic: Denies swollen glands Psychiatric: Denies depression or anxiety Heart Score: HEART Score for Chest Pain: HEART Score for Chest Pain Response (Comments) Value History Slighlty/Non-Suspicious 0 ECG Normal 0 Age < 45 0 Risk Factors 1 or 2 Risk Factors 1 Troponin < Normal Limit 0 Total 1 Risk Factors: Risk Factors: DM, Current or recent (<one month) smoker, HTN, HLP, family history of CAD, obesity. Risk Scores: Score 0 - 3: 2.5% MACE over next 6 weeks - Discharge Home Score 4 - 6: 20.3% MACE over next 6 weeks - Admit for Clinical Observation Score 7 - 10: 72.7% MACE over next 6 weeks - Early Invasive Strategies Family History: Family History: Migraines, hypertension Current Medications: Current Meds: See nursing for home meds, does take a daily baby aspirin Allergies: Allergies: Allergies Coded Allergies Type Severity Reaction Last Updated Verified No Known Drug Allergies 10/07/18 No Physical Exam: PE: Constitutional: Well developed, well nourished, moderate acute distress, non- toxic appearance. [] HENT: Normocephalic, atraumatic, bilateral external ears normal, oropharynx moist, no oral exudates, nose normal. [] Eyes: PERRLA, EOMI, conjunctiva normal, no discharge. [] Neck: Normal range of motion, no tenderness, supple, no stridor. [] Slight bruit on the left. Cardiovascular:Heart rate regular rhythm, no murmur [] Lungs & Thorax: Bilateral breath sounds equal at apex with scattered wheezes on auscultation [] Abdomen: Bowel sounds normal, soft, no tenderness, no masses, no pulsatile masses. [] Skin: Warm, dry, no erythema, no rash. [] Back: No tenderness, no CVA tenderness. [] Extremities: No tenderness, no cyanosis, no clubbing, ROM intact, no edema. [] Neurologic: Alert and oriented X 3, normal motor function, normal sensory function, no focal deficits noted. [] DTRs +2 patellar and brachial. Outbound Telemarketing Representative equal. No drift. Patient is amatory. Does complain of some mild dizziness and nausea Psychologic: Affect anxious, judgement normal, mood normal. [] EKG: EKG: My interpretation EKG shows a sinus rhythm at 84 bpm. No findings acute morphology of contralateral changes. [] Radiology/Procedures: Radiology/Procedures: [][address] [address] IMAGING REPORT Signed PATIENT: ARACELI KEARNS MACCOUNT: [id number] : 1995 LOCATION: ER AGE: 24 SEX: F EXAM STATUS: REG ER ORD. PHYSICIAN: ANTONIO CHAWLA MD REASON: recurrent headache PROCEDURE: CT HEAD WO CONTRAST STUDY: CT head without contrast INDICATION: Recurrent headache. COMPARISON: 11/02/2015 TECHNIQUE: Axial CT imaging through the head without the use of intravenous contrast. Sagittal and coronal reformats were obtained. One or more of the following individualized dose reduction techniques were utilized for this examination: 1. Automated exposure control 2. Adjustment of the mA and/or kV according to patient size 3. Use of iterative reconstruction technique. FINDINGS: No acute intracranial hemorrhage. No mass effect, midline shift or hydrocephalus. Schultz-white matter differentiation is maintained. Unremarkable calvarium. No layering fluid seen within the visualized paranasal sinuses. Unremarkable mastoid air cells and middle ears. IMPRESSION: Unremarkable head CT. Electronically signed by: IDA QUINTANA MD (03/09/2020 2:47 AM) [id number] DICTATED AND SIGNED BY: IDA QUINTANA MD DATE: 03/09/20 024 CC: ANTONIO CHAWLA MD; BIRDIE DAVIS ~ [address] [place], [place] [id number] IMAGING REPORT Signed PATIENT: ARACELI KEARNS MACCOUNT: [id number] : 1995 LOCATION: ER AGE: 24 SEX: F EXAM STATUS: REG ER ORD. PHYSICIAN: ANTONIO CHAWLA MD REASON: Hx. pituitary tumor and left carotid occlusion, OMNI 350, 75ml PROCEDURE: CT ANGIOGRAPHY HEAD AND NECK STUDY: CT angiography of the head and neck INDICATION: Pituitary tumor and left carotid occlusion. COMPARISON: No angiographic studies available for review. TECHNIQUE: Axial CT imaging of the head and neck utilizing angiography protocol and performed after the intravenous administration of 75 cc Omnipaque 350 contrast. Precontrast imaging through the head was performed as well. Multiplanar reformats and 3D MIP acquisitions were obtained. Encountered areas of stenosis are measured per NASCET criteria. One or more of the following individualized dose reduction techniques were utilized for this examination: 1. Automated exposure control 2. Adjustment of the mA and/or kV according to patient size 3. Use of iterative reconstruction technique. FINDINGS: CTA NECK: Arch/Proximal Great Vessels: Unremarkable visualized thoracic aorta. The great vessel origins are patent. Patent bilateral common and subclavian arteries noting that the left common carotid artery is slightly smaller in size relative to the right. Carotid Bifurcation/Cervical ICA: Just distal to the left carotid bulb the left internal carotid artery abruptly becomes severely narrowed and remains this way through the skull base. There is a similar but much less pronounced abrupt change in luminal diameter of the right internal carotid artery 1.4 cm above the bifurcation, image 127 series 3 with the rest of the right cervical ICA mildly narrowed to the skull base. Vertebral Arteries: Essentially codominant and patent. CTA HEAD: Posterior Circulation: No flow-limiting stenosis or branch vessel occlusion there appears to be a very small but patent posterior communicating artery on the left. Anterior Circulation: Continuation of the very small left ICA intracranially with segmental absent visualization in the region of the orbital apex but contrast is seen within the left ICA to the terminus. The right intracranial ICA is small in size but patent through the terminus. No branch vessel occlusion or flow-limiting stenosis seen to involve either middle cerebral artery. A1 anterior cerebral artery segments are not well delineated on either side but there is visualization of A2 segments and beyond. Veins: The dural sinuses are patent as are the major intracerebral veins. There is enhancement of the right cavernous sinus but poorly appreciated cavernous sinus enhancement on the left, image 339 series 7. MISCELLANEOUS: Soft tissue fullness at the anterior mediastinum most likely residual thymic tissue. The visualized lungs are unremarkable. No thyroid abnormality. Evaluation for reported pituitary tumor is limited by technique. IMPRESSION: CT Angio Neck: 1. The left internal carotid artery is patent at the bulb but there is abrupt transitioning to severe luminal stenosis just distal to the bulb and extending through the skull base. The right common carotid artery also becomes smaller in transverse dimension 1.4 cm above the bifurcation but is only mildly narrowed to the skull base. The left ICA finding is apparently known given provided history but no comparison angiographic study is available to determine if there has been any relevant change. 2. Patent bilateral extracranial vertebral arteries. CT Angio Head: 1. Severely narrowed intracranial left ICA with absent visualization of a segment of the left ICA in the region of the orbital apex. There is opacification of the vessel distally to the carotid terminus. Again no comparison studies are available to determine if this represents a change. 2. Generalized small caliber of the right intracranial internal carotid artery but remain patent to the terminus. 3. No branch vessel occlusion or flow-limiting stenosis throughout the posterior circulation or involving either middle cerebral artery. Neither A1 anterior cerebral artery segment is well visualized but there is visualization of the A2 segments and beyond. If there is concern for a recent ischemic event MRI is recommended. 4. Asymmetric lack of contrast opacification of the left cavernous sinus however this region is not hyperdense on the non-contrast study and does not appear expanded typical of thrombosis. Electronically signed by: IDA QUINTANA MD (03/09/2020 3:18 AM) [id number] DICTATED AND SIGNED BY: IDA QUINTANA MD DATE: 03/09/208 CC: ANTONIO CHAWLA MD; BIRDIE DAVIS ~ Course & Med Decision Making: Course & Med Decision Making Pertinent Labs and Imaging studies reviewed. (See chart for details) Discussed presentation, testing and tx. plan with . Recommended pt.be refer to and possible neurology and neurosurgery input. Discussed presentation, testing and tx. plan with . Pt. to call on Tuesday for followup with Dr. Adriel Tamayo in the Neuro clinic. [phone] Patient may take Zofran 8 mg up to 4 times a day for nausea and vomiting. Patient continue daily baby aspirin. Patient to present to for further exacerbation headache. Patient may use Tylenol and ibuprofen for pain. Patient strongly encouraged to stop smoking and use of marijuana. Patient avoid any drugs that may cause vasospasm. Impression: 1. History of recurrent atypical headaches 2. History of recurrent migraines-that do not respond to normal migraine meds 3. Tobacco and marijuana use 4. Anemia hemoglobin 11.7 5. Severely narrowed left internal carotid artery and intracranial left internal carotid artery 6. History of pituitary mass [] Dragon Disclaimer: [place] Disclaimer: This electronic medical record was generated, in whole or in part, using a voice recognition dictation system. Departure Departure: Disposition: 01 HOME/RESIDENCE PRIOR TO ADM Condition: STABLE Referrals: BIRDIE DAVIS (PCP) Scripts Oxycodone Hcl/Acetaminophen (PERCOCET 5-325 MG TABLET ) 1 Each Tablet 1 TAB PO PRN Q6HRS PRN for PAIN, #30 TAB Prov: ANTONIO CHAWLA MD 03/09/20 Ondansetron Hcl (ZOFRAN) 8 Mg Tablet 8 MG PO QIDPRN PRN for nausea, dizzy episodes, #30 BOTTLE Prov: ANTONIO CHAWLA MD 03/09/20 Justification of Admission: Justification of Admission: Justification of Admission Dx: N/A Dragon Disclaimer This chart was dictated in whole or in part using Voice Recognition software in a busy, high-work load, and often noisy Emergency Department environment. It may contain unintended and wholly unrecognized errors or omissions. Dragon Disclaimer This chart was dictated in whole or in part using Voice Recognition software in a busy, high-work load, and often noisy Emergency Department environment. It may contain unintended and wholly unrecognized errors or omissions. Dragon Disclaimer This chart was dictated in whole or in part using Voice Recognition software in a busy, high-work load, and often noisy Emergency Department environment. It may contain unintended and wholly unrecognized errors or omissions. ANTONIO CHAWLA MD Mar 09, 2020 00:52
[2020-03-09] MEDS ORDERED: ONDANSETRON PF 4 MG/2 ML VIAL. ONE (00:58)
[2020-03-09] MEDS ORDERED: IV RINGERS SOLUTION,LACTATED 1,000 ML IV SCH (01:00)
[2020-03-09] MEDS ORDERED: ONDANSETRON PF 4 MG/2 ML VIAL. IVP ONE ×2 (01:30→02:00)
[2020-03-09 02:03] LABS: BASO % 0 % (0-3); EOS % 1 % (0-3); HEMATOCRIT 35.7 % (36.0-47.0); HEMOGLOBIN 11.7 g/dL (12.0-15.5); LYMPH # 2.9 x10^3/uL (1.0-4.8); LYMPH % 46 % (24-48); MEAN CORPUSCULAR HEMOGLOBIN 30 pg (25-35); MEAN CORPUSCULAR HGB CONC 33 g/dL (31-37); MEAN CORPUSCULAR VOLUME 92 fL (79-100); MONO # 0.5 x10^3/uL (0.0-1.1); MONO % 8 % (0-9); NEUT # 2.9 x10^3uL (1.8-7.7); NEUT % 45 % (31-73); PLATELET COUNT 202 x10^3/uL (140-400); RED BLOOD COUNT 3.87 x10^6/uL (3.50-5.40); WHITE BLOOD COUNT 6.3 x10^3/uL (4.0-11.0)
[2020-03-09] MEDS ORDERED: IOHEXOL 350 MG/ML 100 ML VIAL. IV ONE (02:15)
[2020-03-09] MEDS ORDERED: CONTRAST GIVEN. MC PRN (02:15)
[2020-03-09 02:17] LABS: BARBITURATES NEG (NEG); BENZODIAZEPINES NEG (NEG); CANNABINOIDS POS (NEG); COCAINE NEG (NEG); METHADONE NEG (NEG); OPIATES NEG (NEG); PHENCYCLIDINE NEG (NEG)
[2020-03-09 02:25] LABS: AMPHETAMINE/METHAMPHETAMINE NEG (NEG)
[2020-03-09 02:31] LABS: BILIRUBIN,URINE NEG (NEG); CLARITY,URINE CLEAR; COLOR,URINE STRAW; GLUCOSE,URINE NEG (NEG); NITRITE,URINE NEG (NEG); RBC,URINE 0 /HPF (0-2); UROBILINOGEN,URINE 0.2 mg/dL (0.2 mg/dL); WBC,URINE 0 /HPF (0-4)
[2020-03-09 02:32] LABS: BACTERIA,URINE 0 /HPF (0-FEW)
--- NOTE | 2020-03-09 02:50 | RAD ---
STUDY: CT head without contrast INDICATION: Recurrent headache. COMPARISON: 11/02/2015 TECHNIQUE: Axial CT imaging through the head without the use of intravenous contrast. Sagittal and coronal reformats were obtained. One or more of the following individualized dose reduction techniques were utilized for this examination: 1. Automated exposure control 2. Adjustment of the mA and/or kV according to patient size 3. Use of iterative reconstruction technique. FINDINGS: No acute intracranial hemorrhage. No mass effect, midline shift or hydrocephalus. Schultz-white matter differentiation is maintained. Unremarkable calvarium. No layering fluid seen within the visualized paranasal sinuses. Unremarkable mastoid air cells and middle ears. IMPRESSION: Unremarkable head CT. Electronically signed by: IDA QUINTANA MD (03/09/2020 2:47 AM) [id number]
--- NOTE | 2020-03-09 03:21 | RAD ---
STUDY: CT angiography of the head and neck INDICATION: Pituitary tumor and left carotid occlusion. COMPARISON: No angiographic studies available for review. TECHNIQUE: Axial CT imaging of the head and neck utilizing angiography protocol and performed after the intravenous administration of 75 cc Omnipaque 350 contrast. Precontrast imaging through the head was performed as well. Multiplanar reformats and 3D MIP acquisitions were obtained. Encountered areas of stenosis are measured per NASCET criteria. One or more of the following individualized dose reduction techniques were utilized for this examination: 1. Automated exposure control 2. Adjustment of the mA and/or kV according to patient size 3. Use of iterative reconstruction technique. FINDINGS: CTA NECK: Arch/Proximal Great Vessels: Unremarkable visualized thoracic aorta. The great vessel origins are patent. Patent bilateral common and subclavian arteries noting that the left common carotid artery is slightly smaller in size relative to the right. Carotid Bifurcation/Cervical ICA: Just distal to the left carotid bulb the left internal carotid artery abruptly becomes severely narrowed and remains this way through the skull base. There is a similar but much less pronounced abrupt change in luminal diameter of the right internal carotid artery 1.4 cm above the bifurcation, image 127 series 3 with the rest of the right cervical ICA mildly narrowed to the skull base. Vertebral Arteries: Essentially codominant and patent. CTA HEAD: Posterior Circulation: No flow-limiting stenosis or branch vessel occlusion there appears to be a very small but patent posterior communicating artery on the left. Anterior Circulation: Continuation of the very small left ICA intracranially with segmental absent visualization in the region of the orbital apex but contrast is seen within the left ICA to the terminus. The right intracranial ICA is small in size but patent through the terminus. No branch vessel occlusion or flow-limiting stenosis seen to involve either middle cerebral artery. A1 anterior cerebral artery segments are not well delineated on either side but there is visualization of A2 segments and beyond. Veins: The dural sinuses are patent as are the major intracerebral veins. There is enhancement of the right cavernous sinus but poorly appreciated cavernous sinus enhancement on the left, image 339 series 7. MISCELLANEOUS: Soft tissue fullness at the anterior mediastinum most likely residual thymic tissue. The visualized lungs are unremarkable. No thyroid abnormality. Evaluation for reported pituitary tumor is limited by technique. IMPRESSION: CT Angio Neck: 1. The left internal carotid artery is patent at the bulb but there is abrupt transitioning to severe luminal stenosis just distal to the bulb and extending through the skull base. The right common carotid artery also becomes smaller in transverse dimension 1.4 cm above the bifurcation but is only mildly narrowed to the skull base. The left ICA finding is apparently known given provided history but no comparison angiographic study is available to determine if there has been any relevant change. 2. Patent bilateral extracranial vertebral arteries. CT Angio Head: 1. Severely narrowed intracranial left ICA with absent visualization of a segment of the left ICA in the region of the orbital apex. There is opacification of the vessel distally to the carotid terminus. Again no comparison studies are available to determine if this represents a change. 2. Generalized small caliber of the right intracranial internal carotid artery but remain patent to the terminus. 3. No branch vessel occlusion or flow-limiting stenosis throughout the posterior circulation or involving either middle cerebral artery. Neither A1 anterior cerebral artery segment is well visualized but there is visualization of the A2 segments and beyond. If there is concern for a recent ischemic event MRI is recommended. 4. Asymmetric lack of contrast opacification of the left cavernous sinus however this region is not hyperdense on the non-contrast study and does not appear expanded typical of thrombosis. Electronically signed by: IDA QUINTANA MD (03/09/2020 3:18 AM) [id number]
[2020-03-09] MEDS ORDERED: FAMOTIDINE 20 MG/2 ML VIAL IVP ONE (03:30)
[2020-03-09 05:36] LABS: ALBUMIN 3.6 g/dL (3.4-5.0); CALCIUM 8.8 mg/dL (8.5-10.1); CREATININE 0.8 mg/dL (0.6-1.0); GFR 104.9; POTASSIUM 3.6 mmol/L (3.5-5.1); TOTAL BILIRUBIN 0.2 mg/dL (0.2-1.0); TOTAL PROTEIN 6.8 g/dL (6.4-8.2)
[2020-03-09 05:37] LABS: DIRECT BILIRUBIN 0.1 mg/dL (0.0-0.2)
[2020-03-09 06:05] VITALS: BP 138/77
[2020-03-09] MEDS ORDERED: ONDA8TAB9 PO (06:59)
[2020-03-09] MEDS ORDERED: OXYC1TAB15 PO (06:59)
[2020-03-09] MEDS ORDERED: ACETAMINOPHEN 500 MG TABLET PO ONE (07:15)
[2020-03-09] MEDS ORDERED: KETOROLAC 30 MG/ML VIAL. IVP ONE (07:15)
--- NOTE | 2020-03-09 15:52 | EKG ---
[address] [address] Test Date: 2020-03-09 Test Time: 01:38:38 Pat Name: ARACELI KEARNS Department: Room: Gender: F Staging Technician: : 1995 Requested By: ANTONIO CHAWLA Order Number: [id number] Reading MD: Measurements Intervals [place] Rate: 84 P: 90 [place]: 168 QRS: 8 QRSD: 78 T: 52 QT: 366 QTc: 436 Interpretive Statements SINUS RHYTHM NORMAL ECG RI6.02 No previous ECG available for comparison
== END 2020-03-09 07:30 | disposition home or self-care (01) ==
LOC: ER 00:49
DX: G43.909 Migraine, unspecified, not intractable, without status migrainosus (principal); D64.9 Anemia, unspecified; F41.9 Anxiety disorder, unspecified; F32.9 Major depressive disorder, single episode, unspecified; K58.9 Irritable bowel syndrome, unspecified; F17.210 Nicotine dependence, cigarettes, uncomplicated; F12.10 Cannabis abuse, uncomplicated; G40.909 Epilepsy, unspecified, not intractable, without status epilepticus; Z86.73 Personal history of transient ischemic attack (TIA), and cerebral infarction without residual deficits
CPT/HCPCS: 36415; 70450; 70496; 70498; 80048; 80076; 80307; 81001; 81025; 83735; 84443; 85025; 85610; 85730; 86140; 93005; 96361; 96374; 96375; 96376; 99285; J1885; J2405; J3010; J3490; J7120; Q9967

== ENCOUNTER → 2020-09-06 | Outpatient (CLI) | payer OTHER ==
[~2020-09-06] MED LIST changes: +ONDA8TAB9 PO; +OXYC1TAB15 PO
[2020-09-06 10:40] LABS: BASO % 0 % (0-3); EOS % 0 % (0-3); HEMOGLOBIN 12.9 g/dL (12.0-15.5); LYMPH # 2.4 x10^3/uL (1.0-4.8); LYMPH % 20 % (24-48); MEAN CORPUSCULAR HEMOGLOBIN 29 pg (25-35); MEAN CORPUSCULAR HGB CONC 32 g/dL (31-37); MEAN CORPUSCULAR VOLUME 92 fL (79-100); MONO # 0.7 x10^3/uL (0.0-1.1); MONO % 6 % (0-9); NEUT # 9.1 x10^3uL (1.8-7.7); NEUT % 74 % (31-73); PLATELET COUNT 257 x10^3/uL (140-400); RED BLOOD COUNT 4.46 x10^6/uL (3.50-5.40); RED CELL DISTRIBUTION WIDTH 12.4 % (11.5-14.5); WHITE BLOOD COUNT 12.3 x10^3/uL (4.0-11.0)
[2020-09-06 10:50] LABS: ALBUMIN 3.8 g/dL (3.4-5.0); ALBUMIN/GLOBULIN RATIO 1.1 (1.0-1.7); ALK PHOS 44 U/L (46-116); ALT (SGPT) 31 U/L (14-59); ANION GAP 7 (6-14); AST (SGOT) 20 U/L (15-37); BLOOD UREA NITROGEN 9 mg/dL (7-20); BUN/CREATININE RATIO 13 (6-20); CALCIUM 9.1 mg/dL (8.5-10.1); CARBON DIOXIDE 28 mmol/L (21-32); CHLORIDE 102 mmol/L (98-107); CREATININE 0.7 mg/dL (0.6-1.0); GFR 121.5; GLUCOSE 110 mg/dL (70-99); POTASSIUM 3.7 mmol/L (3.5-5.1); SODIUM 137 mmol/L (136-145); TOTAL BILIRUBIN 0.4 mg/dL (0.2-1.0); TOTAL PROTEIN 7.4 g/dL (6.4-8.2)
[2020-09-06 11:05] LABS: C REACTIVE PROTEIN < 0.5 mg/L (0-3.3)
[2020-09-06 15:24] LABS: FREE T4 0.74 ng/dL (0.76-1.46); THYROID STIM HORMONE (TSH) 0.412 uIU/mL (0.358-3.740)
[2020-09-07 02:09] LABS: RHEUMATOID FACTOR <10.0 IU/mL (0.0-13.9)
[2020-09-07 05:37] LABS: HEMOGLOBIN A1C 4.8 % (4.8-5.6); TESTOSTERONE TOTAL <3 ng/dL (8-48)
[2020-09-08 18:09] LABS: ANA INTERP Positive (.)
== END ==
LOC: LAB 09:19
PROVIDERS: ATTEND Hospitalist
DX: Z00.00 Encounter for general adult medical examination without abnormal findings (principal); D49.7 Neoplasm of unspecified behavior of endocrine glands and other parts of nervous system; E55.9 Vitamin D deficiency, unspecified; M79.7 Fibromyalgia
CPT/HCPCS: 36415; 80053; 80061; 82306; 83036; 84146; 84403; 84439; 84443; 85025; 86038; 86140; 86431

== ENCOUNTER → 2020-09-16 | Outpatient (CLI) | payer OTHER ==
[2020-09-16 11:39] LABS: ALBUMIN 3.7 g/dL (3.4-5.0); ALBUMIN/GLOBULIN RATIO 1.1 (1.0-1.7); ALK PHOS 39 U/L (46-116); ALT (SGPT) 38 U/L (14-59); ANION GAP 9 (6-14); AST (SGOT) 24 U/L (15-37); BLOOD UREA NITROGEN 11 mg/dL (7-20); BUN/CREATININE RATIO 16 (6-20); CALCIUM 9.1 mg/dL (8.5-10.1); CARBON DIOXIDE 28 mmol/L (21-32); CHLORIDE 105 mmol/L (98-107); CREATININE 0.7 mg/dL (0.6-1.0); GFR 121.5; GLUCOSE 86 mg/dL (70-99); POTASSIUM 3.8 mmol/L (3.5-5.1); SODIUM 142 mmol/L (136-145); TOTAL BILIRUBIN 0.3 mg/dL (0.2-1.0); TOTAL PROTEIN 7.1 g/dL (6.4-8.2)
[2020-09-16 11:40] LABS: C REACTIVE PROTEIN < 0.5 mg/L (0-3.3)
[2020-09-16 12:16] LABS: BASO % 0 % (0-3); EOS % 1 % (0-3); HEMATOCRIT 38.1 % (36.0-47.0); HEMOGLOBIN 12.3 g/dL (12.0-15.5); LYMPH # 1.7 x10^3/uL (1.0-4.8); LYMPH % 35 % (24-48); MEAN CORPUSCULAR HEMOGLOBIN 30 pg (25-35); MEAN CORPUSCULAR HGB CONC 32 g/dL (31-37); MEAN CORPUSCULAR VOLUME 92 fL (79-100); MONO # 0.3 x10^3/uL (0.0-1.1); MONO % 6 % (0-9); NEUT # 2.8 x10^3uL (1.8-7.7); NEUT % 58 % (31-73); PLATELET COUNT 218 x10^3/uL (140-400); RED BLOOD COUNT 4.14 x10^6/uL (3.50-5.40); RED CELL DISTRIBUTION WIDTH 13.1 % (11.5-14.5); WHITE BLOOD COUNT 4.8 x10^3/uL (4.0-11.0)
[2020-09-16 21:07] LABS: C3 COMPLEMENT 98 mg/dL (82-167); C4 COMPLEMENT 19 mg/dL (12-38); IMMUNOGLOBULIN A 141 mg/dL (87-352); IMMUNOGLOBULIN G 1104 mg/dL (586-1602); IMMUNOGLOBULIN M 135 mg/dL (26-217); RHEUMATOID FACTOR <10.0 IU/mL (0.0-13.9)
[2020-09-17 14:09] LABS: ANTI-DS DNA <1 IU/mL (0-9); SSA ANTIBODY <0.2 AI (0.0-0.9); SSB ANTIBODY <0.2 AI (0.0-0.9)
[2020-09-18 20:37] LABS: ALBUM 3.7 g/dL (2.9-4.4); ALPHA 1 0.3 g/dL (0.0-0.4); ALPHA 2 0.7 g/dL (0.4-1.0); BETA 0.9 g/dL (0.7-1.3); BETA 2 MICROGLOB 1.1 mg/L (0.6-2.4); GAMMA 1.2 g/dL (0.4-1.8); PROTEIN TOTAL 6.8 g/dL (6.0-8.5); SMOOTH MUSCLE AB 7 Units (0-19); SPEP AG RATIO 1.2 (0.7-1.7)
[2020-09-18 22:10] LABS: ANA INTERP Positive (.)
[2020-09-18 23:09] LABS: CYCLIC CITRULLIN PEP AB 6 units (0-19)
[2020-09-19 06:51] LABS: KAPPA FREE 19.1 mg/L (3.3-19.4); KAPPA LAMBDA RATIO 1.09 (0.26-1.65); LAMBDA FREE 17.5 mg/L (5.7-26.3)
== END ==
LOC: LAB 09:36
PROVIDERS: ATTEND Internal Medicine Rheumatology
DX: R76.8 Other specified abnormal immunological findings in serum (principal)
CPT/HCPCS: 36415; 80053; 82232; 82784; 83516; 83520; 84165; 85025; 86038; 86140; 86160; 86200; 86235; 86255; 86431; 86704; 86706; 86803; 87340

== ENCOUNTER 2020-11-04 23:32 | Emergency (ER) | payer OTHER ==
[~2020-11-04] VITALS: Ht 162.6 cm; Wt 61.4 kg
[2020-11-04 23:47] VITALS: BP 148/91
--- NOTE | 2020-11-04 23:59 | PHYS DOC ---
Past History Past Medical History: Anxiety, Depression, Endometriosis, IBS, Migraines, Seizure, TIA Additional Past Medical Histor: carotid artery changes on Lt. , pituitary tumor Past Surgical History: No Surgical History Smoking: Cigarettes Alcohol Use: None Drug Use: None, Marijuana Adult General Chief Complaint Chief Complaint: MULTIPLE COMPLAINTS [facility] HPI Patient is a 25-year-old female with a past medical history significant for anxiety and fibromyalgia who presents with a chief complaint of anxiety attack and body aches. States she had a tough day at work, has had some stressful news and is having some anxiety and body aches. States that she has some Percocet at home and is taking an antidepressant but did not take any of her Percocet that she only has 5 left. States she does have an upcoming primary care appointment for medication refills but does not for another week. Denies any recent travel, illnesses, fevers, headache, chest pain, shortness of breath, abdominal pain, nausea, vomiting or dysuria. States she is also currently on her menstrual period over the last couple of days which are usually heavy and usually makes her very tired. Review of Systems Review of Systems Constitutional: Denies fever or chills [] Eyes: Denies change in visual acuity, redness, or eye pain [] HENT: Denies nasal congestion or sore throat [] Respiratory: Denies cough or shortness of breath [] Cardiovascular: No additional information not addressed in HPI [] GI: Denies abdominal pain, nausea, vomiting, bloody stools or diarrhea [] : Denies dysuria or hematuria [] Musculoskeletal: Denies back pain or joint pain [] Integument: Denies rash or skin lesions [] Neurologic: Denies headache, focal weakness or sensory changes [] Endocrine: Denies polyuria or polydipsia [] All other systems were reviewed and found to be within normal limits, except as documented in this note. Allergies Allergies Allergies Coded Allergies Type Severity Reaction Last Updated Verified No Known Drug Allergies 10/07/18 No Physical Exam Physical Exam Constitutional: Well developed, well nourished, no acute distress, non-toxic appearance. [] HENT: Normocephalic, atraumatic, bilateral external ears normal, oropharynx moist, no oral exudates, nose normal. [] Eyes: conjunctiva normal, no discharge. [] Neck: Normal range of motion, no tenderness, supple, no stridor. [] Cardiovascular:Heart rate regular rhythm, no murmur [] Lungs & Thorax: Bilateral breath sounds clear to auscultation [] Abdomen: Bowel sounds normal, soft, no tenderness, no masses, no pulsatile masses. [] Skin: Warm, dry, no erythema, no rash. [] Back: No tenderness, no CVA tenderness. [] Extremities: No tenderness, no cyanosis, no clubbing, ROM intact, no edema. [] Neurologic: Alert and oriented X 3, normal motor function, normal sensory function, no focal deficits noted. [] Psychologic: Anxious, but pleasant and cooperative EKG EKG [] Radiology/Procedures Radiology/Procedures [] Heart Score C/O Chest Pain: No Risk Factors: Risk Factors: DM, Current or recent (<one month) smoker, HTN, HLP, family history of CAD, obesity. Risk Scores: Risk Factors: DM, Current or recent (<one month) smoker, HTN, HLP, family history of CAD, obesity. Course & Med Decision Making Course & Med Decision Making Patient is a 25-year-old female who presents with anxiety attack and body aches Vital signs not concerning. Physical exam noted above. Patient very nice and has an upcoming appointment with your physician but seems to be having anxiety attack as she had a long day at work and some stressful news. Patient given home dose of Percocet as she had not taken any today and a dose of diazepam for anxiety. Advised to call primary care physician first thing in the morning to update on ED visit and see if she can get in a little earlier. Gave strict return precautions to the ED. Patient grateful, verbalized understanding and agreed with plan of discharge. [] Dragon Disclaimer Dragon Disclaimer This electronic medical record was generated, in whole or in part, using a voice recognition dictation system. Departure Departure: Impression: Primary Impression: Anxiety attack Additional Impression: Body aches Disposition: HOME / SELF CARE / HOMELESS Condition: GOOD Referrals: SHAHID CANTU MD (PCP) Patient Instructions: Anxiety and Panic Attacks, [id number], Fatigue, Fibromyalgia Additional Instructions: Please read all the attached information. Please continue to take all your medications at home as prescribed. He can also take Tylenol, ibuprofen and Benadryl as needed as discussed. Please call your primary care physician first thing in the morning to update on ED visit and set up a follow-up as soon as possible. Please come back to the emergency department immediately with new or concerning symptoms. Problem Qualifiers JOSETTE VILLALPANDO MD Nov 04, 2020 23:59
[2020-11-05] MEDS ORDERED: oxyCODONE/APAP 5/325 1 TAB TABLET PO ONE
[2020-11-05] MEDS ORDERED: diazePAM 5 MG TABLET. PO ONE
== END 2020-11-05 00:08 | disposition home or self-care (01) ==
LOC: ER 23:32
DX: F41.9 Anxiety disorder, unspecified (principal); M79.10 Myalgia, unspecified site; F32.9 Major depressive disorder, single episode, unspecified; K58.9 Irritable bowel syndrome, unspecified; G43.909 Migraine, unspecified, not intractable, without status migrainosus; F17.210 Nicotine dependence, cigarettes, uncomplicated; Z86.73 Personal history of transient ischemic attack (TIA), and cerebral infarction without residual deficits
CPT/HCPCS: 99283

== ENCOUNTER 2020-12-06 00:41 | Emergency (ER) | payer OTHER ==
[~2020-12-06] VITALS: Ht 162.6 cm; Wt 61.4 kg
[2020-12-06] MEDS ORDERED: OXYC-325 PO (01:18)
--- NOTE | 2020-12-06 01:20 | PHYS DOC ---
Past History Past Medical History: Anxiety, Asthma Additional Past Medical Histor: carotid artery changes on Lt. , pituitary tumor Past Surgical History: No Surgical History Smoking: Cigarettes Alcohol Use: None Drug Use: None, Marijuana Adult General Chief Complaint Chief Complaint: GENERALIZED BODY ACHES HPI HPI Patient is a 25-year-old female with a past medical history significant for anxiety, depression and fibromyalgia who presents to the emergency department with a chief complaint of body aches and fatigue. States she is had them over the last couple of days. Denies any recent traumas, travels, fevers, chest pain, shortness of breath, abdominal pain, nausea, vomiting, dysuria, hematuria, blood in the stool. Denies any known ill contacts. States that she is out of her Percocet at home and has an appointment coming up with her primary care physician to get them refilled. Review of Systems Review of Systems Review of systems otherwise unremarkable except noted in HPI Allergies Allergies Allergies Coded Allergies Type Severity Reaction Last Updated Verified No Known Drug Allergies 10/07/18 No Physical Exam Physical Exam Constitutional: Well developed, well nourished, no acute distress, non-toxic appearance. [] HENT: Normocephalic, atraumatic, ] Eyes: EOMI, conjunctiva normal, no discharge. [] Neck: Normal range of motion, no tenderness, supple, no stridor. [] Cardiovascular:Heart rate regular rhythm, no murmur [] Lungs & Thorax: Bilateral breath sounds clear to auscultation [] Abdomen: Bowel sounds normal, soft, no tenderness, no masses, no pulsatile masses. [] Skin: Warm, dry, no erythema, no rash. [] Extremities: No tenderness, ROM intact, no edema. [] Neurologic: Alert and oriented X 3, normal motor function, normal sensory function, able to sit, stand and walk without issue no focal deficits noted. [] Psychologic: Affect normal, judgement normal, mood normal. [] EKG EKG EKG with a rate of 95, QRS of 78, QTc of 446, normal sinus [] Radiology/Procedures Radiology/Procedures [] Heart Score C/O Chest Pain: No Risk Factors: Risk Factors: DM, Current or recent (<one month) smoker, HTN, HLP, family history of CAD, obesity. Risk Scores: Risk Factors: DM, Current or recent (<one month) smoker, HTN, HLP, family history of CAD, obesity. Course & Med Decision Making Course & Med Decision Making Patient is a 25-year-old female who presents with generalized body aches and fatigue and out of Percocet at home Vital signs not concerning. Physical exam noted above. Given home dose of Percocet. EKG normal and noted above. POC glucose normal. negative. Discussed all findings with patient and given home Percocet prescription to last a week until she is able to call her primary care physician on Tuesday. Gave return precautions to the ED. Patient grateful, verbalized understanding and agreed with plan of discharge. [] Dragon Disclaimer Dragon Disclaimer This electronic medical record was generated, in whole or in part, using a voice recognition dictation system. Departure Departure: Impression: Primary Impression: Body aches Disposition: HOME / SELF CARE / HOMELESS Condition: GOOD Referrals: SHAHID CANTU MD (PCP) Patient Instructions: Fatigue, Muscle Cramps Additional Instructions: Please read all of the attached information very carefully. You were given your home dose of Percocet at your request here in the emergency department. You were sent home with a couple days worth until you are able to see your primary care physician. Please call your primary care physician first thing Tuesday morning to discuss your ED visit and set up a follow-up appointment as soon as you can to discuss medication management. Please come back to the emergency department immediately with new or concerning symptoms as discussed. Scripts Oxycodone HCl/Acetaminophen (Percocet 5-325 mg Tablet) 1 Each Tablet 1 TAB PO PRN BID PRN for PAIN MDD 2 Tablet(s) for 3 Days, #6 TAB 0 Refills Prov: JOSETTE VILLALPANDO MD 12/06/20 JOSETTE VILLALPANDO MD December 06, 2020 01:20
[2020-12-06] MEDS ORDERED: oxyCODONE/APAP 5/325 1 TAB TABLET PO ONE (01:30)
[2020-12-06 01:45] VITALS: BP 127/86
--- NOTE | 2020-12-06 04:46 | EKG ---
[address] [address] Test Date: 2020-12-06 Test Time: 01:03:25 Pat Name: ARACELI KEARNS Department: Room: Gender: F [employer] Operator: HUSAM : 1995 Requested By: JOSETTE VILLALPANDO Order Number: [id number] Reading MD: Measurements Intervals Needles Rate: 95 P: 36 OH: 156 QRS: 15 QRSD: 78 T: 47 QT: 352 QTc: 446 Interpretive Statements SINUS RHYTHM NORMAL ECG RI6.02 No previous ECG available for comparison
== END 2020-12-06 01:50 | disposition home or self-care (01) ==
LOC: ER 00:41
DX: M79.10 Myalgia, unspecified site (principal); F41.9 Anxiety disorder, unspecified; F32.9 Major depressive disorder, single episode, unspecified; J45.909 Unspecified asthma, uncomplicated; F17.210 Nicotine dependence, cigarettes, uncomplicated; Z32.02 Encounter for pregnancy test, result negative
CPT/HCPCS: 81025; 82947; 93005; 99284-25

== ENCOUNTER 2021-01-22 01:19 | Emergency (ER) | payer OTHER ==
[~2021-01-22] VITALS: Ht 163.8 cm; Wt 59.8 kg
[~2021-01-22 01:19] MED LIST changes: +OXYC-325 PO
[2021-01-22] MEDS ORDERED: KETOROLAC 30 MG/ML VIAL. IVP ONE (01:45)
[2021-01-22] MEDS ORDERED: diphenhydrAMINE 50 MG/ML VIAL IVP ONE (01:45)
[2021-01-22] MEDS ORDERED: METOCLOPRAMIDE HCL 10 MG/2 ML VIAL. IVP ONE (01:45)
--- NOTE | 2021-01-22 01:48 | PHYS DOC ---
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, strokes(neck pains),brain aneurism(got better) Past Surgical History: No Surgical History Smoking: Cigarettes Alcohol Use: None Drug Use: None, Marijuana Adult General Chief Complaint Chief Complaint: HEADACHE HPI HPI Patient is a 25 year old female who presents with migraine headache mainly located in the right frontal and orbital area. This is very typical of migraine headache that she has gotten in the past before. This time she does not have as much nausea or dizziness. She does have previous history of carotid stenosis and extensive evaluation at neurology and neurosurgery. Patient and her physicians have opted not to operate in view of the anatomy of her vessels. She denies any focal weakness, numbness, visual disturbance and describes the headache as her typical migraine headache. The headache has been present for the last 3 days and increasing. She has taken her usual medication and have also supplemented with Percocet today and despite the headache persist. She denies any chest pain or shortness of breath. She denies any fever, cough or known exposure to Covid. She has not been vaccinated and I have counseled her on importance of vaccination Review of Systems Review of Systems Constitutional: Denies fever or chills Eyes: Denies change in visual acuity, redness, or eye pain HENT: Denies nasal congestion or sore throat Respiratory: Denies cough or shortness of breath Cardiovascular: No additional information not addressed in HPI GI: Denies abdominal pain, nausea, vomiting, bloody stools or diarrhea : Denies dysuria or hematuria Musculoskeletal: Denies back pain or joint pain Integument: Denies rash or skin lesions Neurologic: Migraine headache, no focal weakness or sensory changes Endocrine: Denies polyuria or polydipsia All other systems were reviewed and found to be within normal limits, except as documented in this note. Family History Family History Unremarkable Current Medications Current Medications See chart for detail Allergies Allergies Allergies Coded Allergies Type Severity Reaction Last Updated Verified No Known Drug Allergies 10/07/18 No Physical Exam Physical Exam Constitutional: Well developed, well nourished, no acute distress, non-toxic appearance. HENT: Normocephalic, atraumatic, bilateral external ears normal, oropharynx moist, no oral exudates, nose normal. Eyes: PERRLA, EOMI, conjunctiva normal, no discharge. Neck: Normal range of motion, no tenderness, supple, no stridor. Cardiovascular:Heart rate regular rhythm, no murmur Lungs & Thorax: Bilateral breath sounds clear to auscultation Abdomen: Bowel sounds normal, soft, no tenderness, no masses, no pulsatile masses. Skin: Warm, dry, no erythema, no rash. Back: No tenderness, no CVA tenderness. Extremities: No tenderness, no cyanosis, no clubbing, ROM intact, no edema. Neurologic: Alert and oriented X 3, normal motor function, normal sensory function, no focal deficits noted. Psychologic: Affect normal, judgement normal, mood normal. Current Patient Data Vital Signs Vital Signs Date Time Temp Pulse Resp B/P (MAP) Pulse Ox O2 Delivery O2 Flow Rate FiO2 01/22/21 01:25 98.1 105 16 146/91 100 Room Air EKG EKG [] Radiology/Procedures Radiology/Procedures [] Heart Score C/O Chest Pain: N/A Course & Med Decision Making Course & Med Decision Making Current Medications Medications (Trade) Dose Ordered Sig/Nacho Route PRN Reason Start Time Stop Time Status Last Admin Dose Admin Metoclopramide HCl (Reglan Vial) 10 mg 1X ONCE IVP 01/22/21 01:45 01/22/21 01:46 DC 01/22/21 01:57 Ketorolac Tromethamine (Toradol 30mg Vial) 30 mg 1X ONCE IVP 01/22/21 01:45 01/22/21 01:46 DC 01/22/21 01:54 Diphenhydramine HCl (Benadryl) 25 mg 1X ONCE IVP 01/22/21 01:45 01/22/21 01:46 DC 01/22/21 01:56 Pertinent Labs and Imaging studies reviewed. (See chart for details) Patient presented with typical recurrent migraine headache. She was hemodynamically and neurovascularly intact. Patient was given above-stated medication which is worked on her in the past. I reevaluated patient 30-minute later and she had near resolution of her headache. She was resting comfortably in bed and request discharge. She is tolerating diet. No new prescriptions are needed from the emergency department and she will follow up with her regular doctor. Dragon Disclaimer Dragon Disclaimer This electronic medical record was generated, in whole or in part, using a voice recognition dictation system. Departure Departure: Impression: Primary Impression: Migraine headache Disposition: HOME / SELF CARE / HOMELESS Condition: IMPROVED Referrals: SHAHID CANTU MD (PCP) Patient Instructions: Migraine Headache Additional Instructions: Please see your physician in the next 3 to 5 days and resume your normal migraine headache medication. JULIA TREVINO MD Jan 22, 2021 01:48
[2021-01-22 02:47] VITALS: BP 121/74
== END 2021-01-22 03:02 | disposition home or self-care (01) ==
LOC: ER 01:19
DX: G43.909 Migraine, unspecified, not intractable, without status migrainosus (principal); F41.9 Anxiety disorder, unspecified; J45.909 Unspecified asthma, uncomplicated; M79.7 Fibromyalgia; F17.210 Nicotine dependence, cigarettes, uncomplicated; Z86.73 Personal history of transient ischemic attack (TIA), and cerebral infarction without residual deficits
CPT/HCPCS: 96374; 96375; 99284; J1200; J1885; J2765

== ENCOUNTER → 2021-02-17 | Outpatient (CLI) | payer OTHER ==
[2021-01-22 02:47] VITALS: BP 121/74
--- NOTE | 2021-02-17 17:56 | RAD ---
Small bowel follow-through study 02/17/2021 CLINICAL HISTORY: Abdominal pain. TECHNIQUE: A small bowel follow-through study was performed under radiographic control. No fluoroscop y was performed. 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 The abdo andriy bowel gas pattern is nonobstructive. A moderate to large amount stool is seen throughout the co hanane. Calcifications are seen within the pelvis consistent with phleboliths. No radiopaque calculus is definitely seen. The osseous structures are grossly intact. The mucosal pattern of the duodenum, jejunum, ileum and terminal ileum is within normal limits. The s mall bowel transit time is within normal limits. The cecum is within its normal location within the r ight lower quadrant of the abdomen. No extrinsic mass effect upon the small bowel is seen. IMPRESSION: Negative study. Electronically signed by: Gage Montelongo MD (02/17/2021 5:54 PM) [id number]
== END ==
LOC: RAD 08:19
PROVIDERS: ATTEND Internal Medicine Gastroenterology
DX: K92.1 Melena (principal); N80.9 Endometriosis, unspecified
CPT/HCPCS: 74250

== ENCOUNTER 2021-03-10 23:10 | Emergency (ER) | payer OTHER ==
[~2021-03-10] VITALS: Ht 163.8 cm; Wt 58.9 kg
[2021-03-10 23:29] VITALS: BP 135/97
[2021-03-10] MEDS ORDERED: CONTRAST GIVEN. MC PRN (23:45)
[2021-03-10] MEDS ORDERED: PROCHLORPERAZINE 10 MG/2 ML VIAL. IV ONE (23:45)
[2021-03-10] MEDS ORDERED: DEXAMETHASONE SOD PHOS 10 MG/ML VIAL. IVP ONE (23:45)
[2021-03-10] MEDS ORDERED: IV NORMAL SALINE 1,000ML 1,000 ML IV SCH (23:45)
[2021-03-10] MEDS ORDERED: diphenhydrAMINE 50 MG/ML VIAL IVP ONE (23:45)
[2021-03-10] MEDS ORDERED: IOHEXOL 350 MG/ML 100 ML VIAL. IV ONE (23:45)
--- NOTE | 2021-03-10 23:53 | PHYS DOC ---
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 No relief with Naprosyn, Benadryl or Flexeril. Patient states she is currently being worked up at [facility] for anemia and melena-has an Rx prescription for recommending patient receive a CBC with differential. States "I have 12 doctors." Denies any blunt head/neck injury, no chiropractor manipulations. Is not vaccinated for covid. Review of Systems: Review of Systems: Constitutional: Denies fever or chills Eyes: Denies change in visual acuity HENT: Denies nasal congestion or sore throat or earache Respiratory: Denies cough or shortness of breath Cardiovascular: Denies chest pain or edema GI: Denies abdominal pain, bloody stools or diarrhea : Denies dysuria or vaginal bleeding Musculoskeletal: Denies back pain or joint pain Integument: Denies rash or diaphoresis Neurologic: Denies neck stiffness, focal weakness or sensory changes Endocrine: Denies polyuria or polydipsia Lymphatic: Denies swollen glands Psychiatric: Denies depression or anxiety Current Medications: Current Meds: Current Medications Medications (Trade) Dose Ordered Sig/Nacho Start Time Stop Time Status Last Admin Dose Admin Dexamethasone Sodium Phosphate (Decadron) 10 mg 1X ONCE 03/10/21 23:45 03/10/21 23:51 DC Diphenhydramine HCl (Benadryl) 50 mg 1X ONCE 03/10/21 23:45 03/10/21 23:51 DC Iohexol (Omnipaque 350 Mg/ml) 75 ml 1X ONCE 03/10/21 23:45 03/10/21 23:51 DC Prochlorperazine Edisylate (Compazine) 10 mg 1X ONCE 03/10/21 23:45 03/10/21 23:51 DC Sodium Chloride 1,000 ml @ 1,000 mls/hr Q1H 03/10/21 23:45 03/11/21 00:44 Allergies: Allergies: Allergies Coded Allergies Type Severity Reaction Last Updated Verified No Known Drug Allergies 03/10/21 No Physical Exam: PE: Constitutional: Well developed, well nourished, no acute distress, non-toxic appearance. HENT: Normocephalic, atraumatic, normal TMs bilaterally, no pulsating temporal pulse, no pharyngeal erythema Eyes: PERRLA, EOMI, conjunctiva normal, no discharge, squints with light eye exam Neck: Normal range of motion, supple, no nuchal rigidity or meningismus, no anterior bruits Cardiovascular: S1/2 present, regular rhythm Lungs & Thorax: Speaking in full sentences, bilateral equal chest rise, no tachypnea or increased work of breathing Skin: Warm, dry, no erythema, no rash. [] Back: No tenderness, no CVA tenderness. [] Extremities: No tenderness, no cyanosis, no lower extremity edema Neurologic: cn 2- 12 intact, Alert and oriented X 3, normal motor function, normal sensory function, no focal deficits noted, Psychologic: Affect normal, judgement normal, mood normal. [] Current Patient Data: Vital Signs: Vital Signs Date Time Temp Pulse Resp B/P (MAP) Pulse Ox O2 Delivery O2 Flow Rate FiO2 03/10/21 23:29 98.0 89 18 135/97 98 EKG: EKG: [] Radiology/Procedures: Radiology/Procedures: IMAGING REPORT Signed PATIENT: ARACELI KEARNS MACCOUNT: [id number] : 1995 LOCATION: ER AGE: 25 SEX: F EXAM STATUS: REG ER ORD. PHYSICIAN: YURI RASMUSSEN DO REASON: headache PROCEDURE: CT HEAD WO CONTRAST PQRS Compliance Statement: One or more of the following individualized dose reduction techniques were utilized for this examination: 1. Automated exposure control 2. Adjustment of the mA and/or kV according to patient size 3. Use of iterative reconstruction technique CT HEAD WITHOUT CONTRAST History: Reason: headache / Spl. Instructions: / History: Comparison: CT head without contrast, 2 days ago. Procedure: Axial images are obtained of the head from the skull base through the vertex without IV contrast. Findings: The ventricles and sulci are normal for the patient's age. No mass-effect, midline shift, hemorrhage, extra-axial fluid collection, or obvious acute infarction is identified. Basilar cisterns are patent. Bone windows demonstrate no acute calvarial abnormality. The visualized paranasal sinuses are clear. Mastoid air cells are well aerated. IMPRESSION: No acute intracranial abnormality. Electronically signed by: Murphy Cowan MD (03/11/2021 1:48 AM) [facility] DICTATED AND SIGNED BY: MURPHY COWAN MD DATE: 03/11/21 014 CC: SHAHID CANTU MD; YURI RASMUSSEN DO ~MTH0 0 IMAGING REPORT Signed PATIENT: ARACELI KEARNS MACCOUNT: [id number] : 1995 LOCATION: ER AGE: 25 SEX: F EXAM STATUS: REG ER ORD. PHYSICIAN: YURI RASMUSSEN DO REASON: headache, H/O STROKE & ANEURYSM, OMNI 350, 75ml PROCEDURE: CT ANGIOGRAPHY HEAD AND NECK PQRS Compliance Statement: One or more of the following individualized dose reduction techniques were utilized for this examination: 1. Automated exposure control 2. Adjustment of the mA and/or kV according to patient size 3. Use of iterative reconstruction technique CTA HEAD AND NECK W/WO CONTRAST Clinical Indication: Reason: headache, H/O STROKE ANEURYSM, OMNI 350, 75ml / Spl. Instructions: / History: Comparison: CTA head and neck, 2 days ago. Technique: Helical CT imaging from inferior to the aortic arch to the skull vertex is performed after 75 cc of Omnipaque [address] angiogram protocol. 3-D MIP reconstructions of the cervical carotid arteries and [place] are performed. PQRS Compliance Statement - Stenosis calculations for CT, MR and conventional angiography are based upon measurement of the distal ICA diameter in accordance with the NASCET methodology. Stenosis calculations for carotid ultrasound studies are derived from validated velocity criteria which are known to correlate with the NASCET methodology. Findings: Aortic arch branches are patent. Common carotid arteries are patent. Right carotid base fixation is patent. The cervical right internal carotid arteries patent. The left carotid bifurcation is patent. Unchanged from prior study, the cervical left internal carotid artery caliber becomes string-like just after the bifurcation. The caliber is unchanged to the skull base. The cervical vertebral arteries are patent. The posterior circulation is intact. Enhancement of the right cavernous sinuses again noted. Contrast opacified left cavernous internal carotid artery is not identified. A2 cerebral arteries are small caliber. Right A1 segment is absent, may be congenital. Finding is unchanged. The left A1 segment is better seen on today's study. The middle cerebral arteries are small caliber but patent. No abnormal enhancement in the brain parenchyma is identified. Dural venous sinuses are unremarkable. The upper lungs are clear. Thyroid is symmetric. No cervical adenopathy. Left maxillary sinus mucous retention cyst or polyp. IMPRESSION: 1. CTA findings are unchanged. There is string-like caliber of the cervical left internal carotid artery. The cavernous left ICA may be occluded. 2. The cervical vertebral arteries are patent. Posterior circulation is intact. 3. Small caliber right cervical internal carotid artery. 4. No large vessel occlusion. Electronically signed by: Murphy Cowan MD (03/11/2021 2:16 AM) [facility] DICTATED AND SIGNED BY: MURPHY COWAN MD DATE: 03/11/21202 CC: SHAHID CANTU MD; YURI RASMUSSEN DO ~MTH0 0 Heart Score: C/O Chest Pain: No Risk Factors: Risk Factors: DM, Current or recent (<one month) smoker, HTN, HLP, family history of CAD, obesity. Risk Scores: Score 0 - 3: 2.5% MACE over next 6 weeks - Discharge Home Score 4 - 6: 20.3% MACE over next 6 weeks - Admit for Clinical Observation Score 7 - 10: 72.7% MACE over next 6 weeks - Early Invasive Strategies Course & Med Decision Making: Course & Med Decision Making Pertinent Labs and Imaging studies reviewed. (See chart for details) Patient sleeping comfortably and upon wakening, states her headache is almost fully resolved. Patient was relieved that CT imaging had not changed from 1 year prior. Reports she has a neurologist to follow-up with. Will discharge home with strict ED return precautions were given for severe headache, neurologic deficits, headache with nausea or vomiting or syncope. Encouraged urgent outpatient follow-up with PMD and neurology. Life-threatening processes were considered but are low suspicion at this time, given history, physical exam and ED workup. Pt was educated on all prescription medications and adverse effects. All patient's questions were answered and pt was stable at time of discharge. Life/limb-threatening differential includes but is not limited to, meningitis, encephalitis, intracranial hemorrhage, obstructive hydrocephaly, CVA, carbon m onoxide poisoning, cerebral or cavernous venous thrombosis, hypertensive emergency, preeclampsia, giant cell arteritis, glaucoma, carotid or vertebral artery dissection, superior vena cava syndrome, infection, optic neuritis, or space-occupying lesions. I have spoken with the patient and/or caregivers. I explained the patient's condition, diagnoses and treatment plan based on the information available to me at this time. I have answered the patient and/or caregiver's questions and addressed any concerns. The patient and/or caregivers have a good understanding of patient's diagnosis, condition and treatment plan as can be expected at this point. Vital signs have been stable. Patient's condition is stable and appropriate for discharge from the emergency department. Patient will pursue further outpatient evaluation with primary care physician or other designated or consulting physician as outlined in the discharge instructions. The patient and/or caregivers are agreeable to this plan of care and follow-up instructions have been explained in detail. The patient and/or caregivers have received these instructions in written form and have expressed an understanding of the discharge instructions. The patient and/or caregivers are aware that any significant change of condition or worsening of symptoms should prompt immediate return to this or the closest emergency department or call to 911. Dawood Disclaimer: [place]wood Disclaimer: This electronic medical record was generated, in whole or in part, using a voice recognition dictation system. Departure Departure: Impression: Primary Impression: Migraine headache Disposition: HOME / SELF CARE / HOMELESS Condition: STABLE Referrals: SHAHID CANTU MD (PCP) for routine care in 1- 2weeks Patient Instructions: Recurrent Migraine Headache Additional Instructions: FOLLOW UP WITH NEUROLOGY: For definitive management of migraine headaches Karie Kirby MD [address] [place] [address], [address] [place] [address] [address] [place] [address] EMERGENCY DEPARTMENT GENERAL DISCHARGE INSTRUCTIONS Thank you for coming to [facility] (ED) today and trusting us with you care. We trust that you had a positivie experience in our Emergency Department. If you wish to speak to the department management, you may call the director at [phone]. YOUR FOLLOW UP INSTRUCTIONS ARE FOLLOWS: 1. Do you have a private Doctor? If you do not have a private doctor, please ask for a resource list of physicians or clinics that may be able to assist you with follow up care. 2. The Emergency Physician has interpreted your x-rays. The X-Ray specialist will also review them. If there is a change in the findings, you will be notified in 48 hours when at all possible. 3. A lab test or culture has been done, your results will be reviewed and you will be notified if you need a change in treatment. ADDITIONAL INSTRUCTIONS AND INFORMATION: 1. Your care today has been supervised by a physician who is specially trained in emergency care. Many problems require more than one evaluation for a complete diagnosis and treatment. We recommend that you schedule your follow up appointment as recommended to ensure complete treatment of you illness or injury. If you are unable to obtain follow up care and continue to have a problem, or if your condition worsens, we recommend that you return to the ED. 2. We are not able to safely determine your condition over the phone nor are we able to give sound medical advice over the phone. For these safety reasons, if you call for medical advice we will ask you to come to the ED for further evaluation. 3. If you have any questions regarding these discharge instructions please call the ED at [phone]. SAFETY INFORMATION: In the interest of safety, wellness, and injury prevention; we encourage you to wear your sealbelt, if you smoke; quite smoking, and we encourage family to use a protective helmet for bicycling and other sporting events that present an increased risk for head injury. IF YOUR SYMPTOMS WORSEN OR NEW SYMPTOMS DEVELOP, OR YOU HAVE CONCERNS ABOUT YOUR CONDITION; OR IF YOUR CONDITION WORSENS WHILE YOU ARE WAITING FOR YOUR FOLLOW UP APPOINTM ENT; EITHER CONTACT YOUR PRIMARY CARE DOCTOR, THE PHYSICIAN WHOSE NAME AND NUMBER YOU WERE GIVEN, OR RETURN TO THE ED IMMEDIATELY. YURI RASMUSSEN DO Mar 10, 2021 23:52
[2021-03-11 01:29] LABS: BASO % 0 % (0-3); EOS % 0 % (0-3); HEMATOCRIT 37.3 % (36.0-47.0); HEMOGLOBIN 12.1 g/dL (12.0-15.5); LYMPH # 1.6 x10^3/uL (1.0-4.8); LYMPH % 17 % (24-48); MEAN CORPUSCULAR HEMOGLOBIN 30 pg (25-35); MEAN CORPUSCULAR HGB CONC 33 g/dL (31-37); MEAN CORPUSCULAR VOLUME 93 fL (79-100); MONO # 0.4 x10^3/uL (0.0-1.1); MONO % 5 % (0-9); NEUT # 7.3 x10^3uL (1.8-7.7); NEUT % 78 % (31-73); PLATELET COUNT 244 x10^3/uL (140-400); RED BLOOD COUNT 4.01 x10^6/uL (3.50-5.40); RED CELL DISTRIBUTION WIDTH 12.4 % (11.5-14.5); WHITE BLOOD COUNT 9.4 x10^3/uL (4.0-11.0)
[2021-03-11 01:34] LABS: CALCIUM 8.6 mg/dL (8.5-10.1); CREATININE 0.7 mg/dL (0.6-1.0); GFR 121.5; POTASSIUM 3.5 mmol/L (3.5-5.1)
[2021-03-11 01:41] LABS: ALBUMIN 4.1 g/dL (3.4-5.0); ALBUMIN/GLOBULIN RATIO 1.3 (1.0-1.7); TOTAL BILIRUBIN 0.2 mg/dL (0.2-1.0); TOTAL PROTEIN 7.2 g/dL (6.4-8.2)
--- NOTE | 2021-03-11 01:51 | RAD ---
PQRS Compliance Statement: One or more of the following individualized dose reduction techniques were utilized for this examinat ion: 1. Automated exposure control 2. Adjustment of the mA and/or kV according to patient size 3. Use of iterative reconstruction technique CT HEAD WITHOUT CONTRAST History: Reason: headache / Spl. Instructions: / History: Comparison: CT head without contrast, 2 days ago. Procedure: Axial images are obtained of the head from the skull base through the vertex without IV co ntrast. Findings: The ventricles and sulci are normal for the patient's age. No mass-effect, midline shift, hemorrhage, extra-axial fluid collection, or obvious acute infarction is identified. Basilar cisterns are patent. Bone windows demonstrate no acute calvarial abnormality. The visualized paranasal sinuses are clear. Mastoid air cells are well aerated. IMPRESSION: No acute intracranial abnormality. Electronically signed by: Murphy Cowan MD (03/11/2021 1:48 AM) [facility]
--- NOTE | 2021-03-11 02:18 | RAD ---
PQRS Compliance Statement: One or more of the following individualized dose reduction techniques were utilized for this examinat ion: 1. Automated exposure control 2. Adjustment of the mA and/or kV according to patient size 3. Use of iterative reconstruction technique CTA HEAD AND NECK W/WO CONTRAST Clinical Indication: Reason: headache, H/O STROKE ANEURYSM, OMNI 350, 75ml / Spl. Instructions: / History: Comparison: CTA head and neck, 2 days ago. Technique: Helical CT imaging from inferior to the aortic arch to the skull vertex is performed after 75 cc of Omnipaque [address] angiogram protocol. 3-D MIP reconstructions of the cervi sarah carotid arteries and [place] of [place] are performed. PQRS Compliance Statement - Stenosis calculations for CT, MR and conventional angiography are based u arturo measurement of the distal ICA diameter in accordance with the NASCET methodology. Stenosis calcu lations for carotid ultrasound studies are derived from validated velocity criteria which are known t o correlate with the NASCET methodology. Findings: Aortic arch branches are patent. Common carotid arteries are patent. Right carotid base fixation is p atent. The cervical right internal carotid arteries patent. The left carotid bifurcation is patent. U nchanged from prior study, the cervical left internal carotid artery caliber becomes string-like just after the bifurcation. The caliber is unchanged to the skull base. The cervical vertebral arteries a re patent. The posterior circulation is intact. Enhancement of the right cavernous sinuses again note d. Contrast opacified left cavernous internal carotid artery is not identified. A2 cerebral arteries are small caliber. Right A1 segment is absent, may be congenital. Finding is unchanged. The left A1 s egment is better seen on today's study. The middle cerebral arteries are small caliber but patent. No abnormal enhancement in the brain parenchyma is identified. Dural venous sinuses are unremarkable. The upper lungs are clear. Thyroid is symmetric. No cervical adenopathy. Left maxillary sinus mucous retention cyst or polyp. IMPRESSION: 1. CTA findings are unchanged. There is string-like caliber of the cervical left internal carotid ar [place]. The cavernous left ICA may be occluded. 2. The cervical vertebral arteries are patent. Posterior circulation is intact. 3. Small caliber right cervical internal carotid artery. 4. No large vessel occlusion. Electronically signed by: Murphy Cowan MD (03/11/2021 2:16 AM) [facility]
[2021-03-11] MEDS ORDERED: KETOROLAC 15 MG/ML VIAL. IVP ONE (02:30)
[2021-03-11 02:36] LABS: SEDIMENTATION RATE 5 (0-25)
== END 2021-03-11 03:10 | disposition home or self-care (01) ==
LOC: ER 23:10
DX: G43.909 Migraine, unspecified, not intractable, without status migrainosus (principal); M79.7 Fibromyalgia; F41.9 Anxiety disorder, unspecified; J45.909 Unspecified asthma, uncomplicated; F17.210 Nicotine dependence, cigarettes, uncomplicated; Z86.2 Personal history of diseases of the blood and blood-forming organs and certain disorders involving the immune mechanism
CPT/HCPCS: 36415; 70450; 70496; 70498; 80053; 81025; 85025; 85651; 96361; 96374; 96375; 99285; J0780; J1100; J1200; J1885; J7030; Q9967

== ENCOUNTER 2021-04-28 11:17 | Emergency (ER) | payer OTHER ==
[~2021-04-28] VITALS: Ht 163.8 cm; Wt 59.9 kg
[2021-04-28] MEDS ORDERED: diphenhydrAMINE 50 MG/ML VIAL IVP ONE (14:30)
[2021-04-28] MEDS ORDERED: KETOROLAC 15 MG/ML VIAL. IVP ONE (14:30)
[2021-04-28] MEDS ORDERED: DEXAMETHASONE SOD PHOS 10 MG/ML VIAL. IV ONE (14:30)
[2021-04-28] MEDS ORDERED: METOCLOPRAMIDE HCL 10 MG/2 ML VIAL. IVP ONE (14:30)
[2021-04-28] MEDS ORDERED: IV NORMAL SALINE 1,000ML 1,000 ML IV ONE (14:30)
[2021-04-28] MEDS ORDERED: ONDA4TAB12 PO (15:11)
[2021-04-28] MEDS ORDERED: BUTA1TAB23 PO (15:11)
--- NOTE | 2021-04-28 15:11 | PHYS DOC ---
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, strokes(neck pains),brain aneurism, tumor Past Surgical History: No Surgical History Smoking: Cigarettes Alcohol Use: None Drug Use: None, Marijuana General Adult EDM: Chief Complaint: HEADACHE HPI: HPI: Patient is a [age] year old [sex] who presents with [] Review of Systems: Review of Systems: Constitutional: Denies fever or chills Eyes: Denies change in visual acuity HENT: Denies nasal congestion or sore throat Respiratory: Denies cough or shortness of breath Cardiovascular: Denies chest pain or edema GI: Denies abdominal pain, nausea, vomiting, bloody stools or diarrhea : Denies dysuria Musculoskeletal: Denies back pain or joint pain Integument: Denies rash Neurologic: Denies headache, focal weakness or sensory changes Endocrine: Denies polyuria or polydipsia Lymphatic: Denies swollen glands Psychiatric: Denies depression or anxiety Current Medications: Current Meds: Current Medications Medications (Trade) Dose Ordered Sig/Nacho Start Time Stop Time Status Last Admin Dose Admin Dexamethasone Sodium Phosphate (Decadron) 10 mg 1X ONCE 04/28/21 14:30 04/28/21 14:31 DC 04/28/21 14:40 10 MG Diphenhydramine HCl (Benadryl) 50 mg 1X ONCE 04/28/21 14:30 04/28/21 14:31 DC 04/28/21 14:48 50 MG Ketorolac Tromethamine (Toradol 15mg Vial) 15 mg 1X ONCE 04/28/21 14:30 04/28/21 14:31 DC 04/28/21 14:46 15 MG Metoclopramide HCl (Reglan Vial) 10 mg 1X ONCE 04/28/21 14:30 04/28/21 14:31 DC 04/28/21 14:52 10 MG Sodium Chloride 1,000 ml @ 1,000 mls/hr 1X ONCE 04/28/21 14:30 04/28/21 15:29 04/28/21 14:40 1,000 MLS/HR Allergies: Allergies: Allergies Coded Allergies Type Severity Reaction Last Updated Verified No Known Drug Allergies 04/28/21 No Physical Exam: PE: Constitutional: Well developed, well nourished, no acute distress, non-toxic appearance. [] HENT: Normocephalic, atraumatic, bilateral external ears normal, oropharynx moist, no oral exudates, nose normal. [] Eyes: PERRLA, EOMI, conjunctiva normal, no discharge. [] Neck: Normal range of motion, no tenderness, supple, no stridor. [] Cardiovascular:Heart rate regular rhythm, no murmur [] Lungs & Thorax: Bilateral breath sounds clear to auscultation [] Abdomen: Bowel sounds normal, soft, no tenderness, no masses, no pulsatile masses. [] Skin: Warm, dry, no erythema, no rash. [] Back: No tenderness, no CVA tenderness. [] Extremities: No tenderness, no cyanosis, no clubbing, ROM intact, no edema. [] Neurologic: Alert and oriented X 3, normal motor function, normal sensory function, no focal deficits noted. [] Psychologic: Affect normal, judgement normal, mood normal. [] Current Patient Data: Vital Signs: Vital Signs Date Time Temp Pulse Resp B/P (MAP) Pulse Ox O2 Delivery O2 Flow Rate FiO2 04/28/21 12:25 98.1 110 16 147/78 (101) 100 Room Air EKG: EKG: [] Radiology/Procedures: Radiology/Procedures: [] Heart Score: Risk Factors: Risk Factors: DM, Current or recent (<one month) smoker, HTN, HLP, family history of CAD, obesity. Risk Scores: Score 0 - 3: 2.5% MACE over next 6 weeks - Discharge Home Score 4 - 6: 20.3% MACE over next 6 weeks - Admit for Clinical Observation Score 7 - 10: 72.7% MACE over next 6 weeks - Early Invasive Strategies Course & Med Decision Making: Course & Med Decision Making Pertinent Labs and Imaging studies reviewed. (See chart for details) [] Dragon Disclaimer: Dragon Disclaimer: This electronic medical record was generated, in whole or in part, using a voice recognition dictation system. Departure Departure: Impression: Primary Impression: Headache Qualified Codes: R51.9 - Headache, unspecified; G89.29 - Other chronic pain Disposition: HOME / SELF CARE / HOMELESS Condition: STABLE Referrals: SHAHID CANTU MD (PCP) Patient Instructions: Headache, FAQs, Migraine Headache, [id number] Scripts Butalb/Acetaminophen/Caffeine ([id number] [id number]) 1 Each Tablet 1 EACH PO Q6HRS PRN for HEADACHE, #14 TAB Prov: OWEN MONTES DO 04/28/21 Ondansetron (ONDANSETRON ODT) 4 Mg Tab.rapdis 1 TAB PO PRN Q6-8HRS PRN for NAUSEA, #16 TAB Prov: OWEN MONTES DO 04/28/21 OWEN MONTES DO Apr 28, 2021 15:11
[2021-04-28 15:27] VITALS: BP 137/92
== END 2021-04-28 15:25 | disposition home or self-care (01) ==
LOC: ER 11:17
DX: G43.909 Migraine, unspecified, not intractable, without status migrainosus (principal); G89.29 Other chronic pain; F41.9 Anxiety disorder, unspecified; J45.909 Unspecified asthma, uncomplicated; M79.7 Fibromyalgia; F17.210 Nicotine dependence, cigarettes, uncomplicated; Z86.73 Personal history of transient ischemic attack (TIA), and cerebral infarction without residual deficits
CPT/HCPCS: 96361; 96374; 96375; 99284; J1100; J1200; J1885; J2765; J7030

== ENCOUNTER 2021-05-21 16:07 | Emergency (ER) | payer OTHER ==
[~2021-05-21] VITALS: Ht 163.8 cm; Wt 59.2 kg
[2021-05-21] MEDS ORDERED: SUMAtriptan SUCC 6 MG/0.5 ML VIAL SQ ONE (16:45)
[2021-05-21] MEDS ORDERED: diphenhydrAMINE 50 MG/ML VIAL IM ONE (16:45)
[2021-05-21] MEDS ORDERED: IOHEXOL 350 MG/ML 100 ML VIAL. IV ONE (17:00)
[2021-05-21 17:20] LABS: BASO % 1 % (0-3); EOS % 0 % (0-3); HEMATOCRIT 37.7 % (36.0-47.0); HEMOGLOBIN 12.3 g/dL (12.0-15.5); LYMPH # 1.5 x10^3/uL (1.0-4.8); LYMPH % 26 % (24-48); MEAN CORPUSCULAR HEMOGLOBIN 31 pg (25-35); MEAN CORPUSCULAR HGB CONC 33 g/dL (31-37); MEAN CORPUSCULAR VOLUME 95 fL (79-100); MONO # 0.3 x10^3/uL (0.0-1.1); MONO % 6 % (0-9); NEUT # 3.9 x10^3uL (1.8-7.7); NEUT % 68 % (31-73); PLATELET COUNT 206 x10^3/uL (140-400); RED BLOOD COUNT 3.99 x10^6/uL (3.50-5.40); RED CELL DISTRIBUTION WIDTH 12.4 % (11.5-14.5); WHITE BLOOD COUNT 5.7 x10^3/uL (4.0-11.0)
[2021-05-21] MEDS ORDERED: diphenhydrAMINE 50 MG/ML VIAL ONE (17:41)
[2021-05-21] MEDS ORDERED: diphenhydrAMINE 50 MG/ML VIAL IVP ONE (17:45)
--- NOTE | 2021-05-21 17:56 | RAD ---
Exam: CT head. CTA head and neck INDICATION: Migraine TECHNIQUE: Sequential axial images through the head were obtained without the administration of IV co ntrast. Sequential axial images through the head and neck were obtained following the administration of 99 mL of Isovue-370. Exposure: One or more of the following in the visualized dose reduction techniques were utilized for this examination: 1. Automated exposure control 2. Adjustment of the MA and/or KV according to patient size 3. Use of iterative of reconstructive technique Comparisons: 03/09/2020 FINDINGS: Head: No focal parenchymal lesion or hemorrhage is identified. There is no midline shift or sulcal effaceme nt. No acute vascular territory infarction is identified. Schultz-white distinction is preserved. The ventricular system is within normal limits without compression hydrocephalus. The basal cisterns are well maintained. The visualized portions of the paranasal sinuses and mastoid air cells are well-pneumatized. No acute fractures. CTA NECK: Visualized portions of thoracic aorta are unremarkable. Standard three-vessel aortic arch anatomy. Right common carotid artery is patent without evidence stenosis, occlusion or aneurysm. Cervical segm ent of the right internal carotid artery is patent without evidence of stenosis, occlusion or aneurys m. Left common carotid artery is patent without evidence of stenosis, occlusion or aneurysm. Cervical se gment of the left internal carotid artery is markedly diminutive however remains patent throughout it s course. Right vertebral artery is patent to the basilar confluence without evidence of stenosis, occlusion or aneurysm. Left vertebral artery is patent to the basilar confluence without evidence of stenosis, occlusion or aneurysm. Visualized paraspinal soft tissues are unremarkable. CTA head: Cervical segments of the right internal carotid artery are patent. Right MCA is patent. There is nono pacification of the right A1 segment of the TOMI. Right TOMI is predominantly nonopacified, similar to prior study. Nonopacification/occlusion of the cavernous segment of the left internal carotid artery similar to pr ior exam. There is mild opacification distally. The left MCA is patent. The left TOMI is patent from t he A2 segment. The more distal segments of the left DECORATION CHECKER are not well seen. Basilar artery is patent without evidence of stenosis, occlusion or aneurysm. knockout worker are patent bilater ally. Dural venous sinuses are patent. IMPRESSION: 1. No acute intracranial abnormality. 2. Similar findings of the cervical and intracranial arterial vasculature with severe long segment d iminutive appearance of the left internal carotid artery. As before there is nonopacification of the cavernous segment of the left internal carotid artery. The A1 segments of the bilateral ACAs are nono pacified with opacification more distally. No new stenosis or occlusion is identified. Electronically signed by: Monet King MD (05/21/2021 5:53 PM) [facility]
--- NOTE | 2021-05-21 17:56 | RAD ---
Exam: CT head. CTA head and neck INDICATION: Migraine TECHNIQUE: Sequential axial images through the head were obtained without the administration of IV co ntrast. Sequential axial images through the head and neck were obtained following the administration of 99 mL of Isovue-370. Exposure: One or more of the following in the visualized dose reduction techniques were utilized for this examination: 1. Automated exposure control 2. Adjustment of the MA and/or KV according to patient size 3. Use of iterative of reconstructive technique Comparisons: 03/09/2020 FINDINGS: Head: No focal parenchymal lesion or hemorrhage is identified. There is no midline shift or sulcal effaceme nt. No acute vascular territory infarction is identified. Schultz-white distinction is preserved. The ventricular system is within normal limits without compression hydrocephalus. The basal cisterns are well maintained. The visualized portions of the paranasal sinuses and mastoid air cells are well-pneumatized. No acute fractures. CTA NECK: Visualized portions of thoracic aorta are unremarkable. Standard three-vessel aortic arch anatomy. Right common carotid artery is patent without evidence stenosis, occlusion or aneurysm. Cervical segm ent of the right internal carotid artery is patent without evidence of stenosis, occlusion or aneurys m. Left common carotid artery is patent without evidence of stenosis, occlusion or aneurysm. Cervical se gment of the left internal carotid artery is markedly diminutive however remains patent throughout it s course. Right vertebral artery is patent to the basilar confluence without evidence of stenosis, occlusion or aneurysm. Left vertebral artery is patent to the basilar confluence without evidence of stenosis, occlusion or aneurysm. Visualized paraspinal soft tissues are unremarkable. CTA head: Cervical segments of the right internal carotid artery are patent. Right MCA is patent. There is nono pacification of the right A1 segment of the TOMI. Right TOMI is predominantly nonopacified, similar to prior study. Nonopacification/occlusion of the cavernous segment of the left internal carotid artery similar to pr ior exam. There is mild opacification distally. The left MCA is patent. The left TOMI is patent from t he A2 segment. The more distal segments of the left MANAGER UNION are not well seen. Basilar artery is patent without evidence of stenosis, occlusion or aneurysm. boxing instructor are patent bilater ally. Dural venous sinuses are patent. IMPRESSION: 1. No acute intracranial abnormality. 2. Similar findings of the cervical and intracranial arterial vasculature with severe long segment d iminutive appearance of the left internal carotid artery. As before there is nonopacification of the cavernous segment of the left internal carotid artery. The A1 segments of the bilateral ACAs are nono pacified with opacification more distally. No new stenosis or occlusion is identified. Electronically signed by: Monet King MD (05/21/2021 5:53 PM) [facility]
[2021-05-21 18:16] LABS: CALCIUM 8.4 mg/dL (8.5-10.1); CREATININE 0.7 mg/dL (0.6-1.0); GFR 121.5; POTASSIUM 3.8 mmol/L (3.5-5.1)
[2021-05-21 18:21] LABS: ALBUMIN 3.4 g/dL (3.4-5.0); ALBUMIN/GLOBULIN RATIO 1.2 (1.0-1.7); TOTAL BILIRUBIN 0.2 mg/dL (0.2-1.0); TOTAL PROTEIN 6.2 g/dL (6.4-8.2)
--- NOTE | 2021-05-21 18:24 | PHYS DOC ---
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 Patient reports associated aura, upper extremity numbness, photophobia, phonophobia. All of these are typically associated with her migraines. Patient states that she has additional history of nonepileptic seizures. In the past, patient has been treated with a weekly injection prophylactic for migraines, fibromyalgia medications, Imitrex, Topamax. Patient denies weakness, vision changes, NVD, abdominal pain. (JEREMÍAS PEPE) Review of Systems: Review of Systems: Constitutional: Denies fever or chills Eyes: See HPI HENT: Denies nasal congestion or sore throat Respiratory: Denies cough or shortness of breath Cardiovascular: Denies chest pain or edema GI: See HPI : Denies dysuria or hematuria Musculoskeletal: Denies back pain or joint pain Integument: Denies rash or other skin lesion Neurologic: See HPI (JEREMÍAS PEPE) Current Medications: Current Meds: Current Medications Medications (Trade) Dose Ordered Sig/Nacho Start Time Stop Time Status Last Admin Dose Admin Diphenhydramine HCl (Benadryl) 50 mg STK-MED ONCE 05/21/21 17:41 05/21/21 17:41 DC Iohexol (Omnipaque 350 Mg/ml) 100 ml 1X ONCE 05/21/21 17:00 05/21/21 17:03 DC 05/21/21 17:17 100 ML Sumatriptan Succinate (Imitrex) 6 mg 1X ONCE 05/21/21 16:45 05/21/21 17:03 DC 05/21/21 17:43 6 MG (JEREMÍAS PEPE) Allergies: Allergies: Allergies Coded Allergies Type Severity Reaction Last Updated Verified No Known Drug Allergies 04/28/21 No (JEREMÍAS PEPE) Physical Exam: PE: Constitutional: Well developed, well nourished, no acute distress, non-toxic appearance. HENT: Normocephalic, atraumatic, bilateral external ears normal, oropharynx moist, no oral exudates, nose normal. Eyes: PERRLA, EOMI, conjunctiva normal, no discharge. Neck: Normal range of motion, no tenderness, supple, no stridor, left carotid pulse stronger than right side. Cardiovascular: Heart rate regular rhythm, no murmur. Lungs & Thorax: Bilateral breath sounds clear to auscultation. Neurologic: Alert and oriented x3, normal motor function, normal sensory function, no focal deficits noted. (JEREMÍAS PEPE) Current Patient Data: Labs: Laboratory Tests Test 05/21/21 16:56 White Blood Count 5.7 x10^3/uL (4.0-11.0) Red Blood Count 3.99 x10^6/uL (3.50-5.40) Hemoglobin 12.3 g/dL (12.0-15.5) Hematocrit 37.7 % (36.0-47.0) Mean Corpuscular Volume 95 fL (79-100) Mean Corpuscular Hemoglobin 31 pg (25-35) Mean Corpuscular Hemoglobin Concent 33 g/dL (31-37) Red Cell Distribution Width 12.4 % (11.5-14.5) Platelet Count 206 x10^3/uL (140-400) Neutrophils (%) (Auto) 68 % (31-73) Lymphocytes (%) (Auto) 26 % (24-48) Monocytes (%) (Auto) 6 % (0-9) Eosinophils (%) (Auto) 0 % (0-3) Basophils (%) (Auto) 1 % (0-3) Neutrophils # (Auto) 3.9 x10^3uL (1.8-7.7) Lymphocytes # (Auto) 1.5 x10^3/uL (1.0-4.8) Monocytes # (Auto) 0.3 x10^3/uL (0.0-1.1) Eosinophils # (Auto) 0.0 x10^3/uL (0.0-0.7) Basophils # (Auto) 0.0 x10^3/uL (0.0-0.2) Vital Signs: Vital Signs Date Time Temp Pulse Resp B/P (MAP) Pulse Ox O2 Delivery O2 Flow Rate FiO2 05/21/21 16:20 98.3 98 16 137/65 (89) 100 Room Air (JEREMÍAS PEPE) Radiology/Procedures: Radiology/Procedures: PROCEDURE: CT HEAD WO CONTRAST Exam: CT head. CTA head and neck INDICATION: Migraine TECHNIQUE: Sequential axial images through the head were obtained without the administration of IV contrast. Sequential axial images through the head and neck were obtained following the administration of 99 mL of Isovue-370. Exposure: One or more of the following in the visualized dose reduction techniques were utilized for this examination: 1. Automated exposure control 2. Adjustment of the MA and/or KV according to patient size 3. Use of iterative of reconstructive technique Comparisons: 03/09/2020 FINDINGS: Head: No focal parenchymal lesion or hemorrhage is identified. There is no midline shift or sulcal effacement. No acute vascular territory infarction is identified. Schultz-white distinction is preserved. The ventricular system is within normal limits without compression hydrocephalus. The basal cisterns are well maintained. The visualized portions of the paranasal sinuses and mastoid air cells are well- pneumatized. No acute fractures. CTA NECK: Visualized portions of thoracic aorta are unremarkable. Standard three-vessel aortic arch anatomy. Right common carotid artery is patent without evidence stenosis, occlusion or aneurysm. Cervical segment of the right internal carotid artery is patent without evidence of stenosis, occlusion or aneurysm. Left common carotid artery is patent without evidence of stenosis, occlusion or aneurysm. Cervical segment of the left internal carotid artery is markedly diminutive however remains patent throughout its course. Right vertebral artery is patent to the basilar confluence without evidence of stenosis, occlusion or aneurysm. Left vertebral artery is patent to the basilar confluence without evidence of stenosis, occlusion or aneurysm. Visualized paraspinal soft tissues are unremarkable. CTA head: Cervical segments of the right internal carotid artery are patent. Right MCA is patent. There is nonopacification of the right A1 segment of the TOMI. Right TOMI is predominantly nonopacified, similar to prior study. Nonopacification/occlusion of the cavernous segment of the left internal carotid artery similar to prior exam. There is mild opacification distally. The left MCA is patent. The left TOMI is patent from the A2 segment. The more distal segments of the left PARKING METER INSTALLER are not well seen. Basilar artery is patent without evidence of stenosis, occlusion or aneurysm. contact printer dry film are patent bilaterally. Dural venous sinuses are patent. IMPRESSION: 1. No acute intracranial abnormality. 2. Similar findings of the cervical and intracranial arterial vasculature with severe long segment diminutive appearance of the left internal carotid artery. As before there is nonopacification of the cavernous segment of the left internal carotid artery. The A1 segments of the bilateral ACAs are nonopacified with opacification more distally. No new stenosis or occlusion is identified. Electronically signed by: Monet King MD (05/21/2021 5:53 PM) [facility] (JEREM[facility]PE) Heart Score: C/O Chest Pain: No (JEREMÍAS PEPE) Course & Med Decision Making: Course & Med Decision Making Pertinent Labs and Imaging studies reviewed. (See chart for details) Patient has history of migraines and presents with acute prolonged migraine today. Patient states she does not have medications at home to terminate the migraine. Patient does see neurology for nonepileptic seizures as well as migraines. With her additional concern of increased carotid pulse on left side, CTA head and neck will be included in her work-up today. CTA findings were discussed with the patient. She was aware, and has had evaluation with neurosurgery. Patient now reports nausea and muscle spasm. Patient will be treated with IV Norflex and Reglan. On reevaluation, patient is sleeping comfortably. Patient has prescription prescriptions sent for Norflex, Maxalt, Zofran. She is instructed to follow-up with her neurologist, or see a new neurologist should she want a second opinion regarding her current treatment regimen. Patient understands and is agreeable to discharge plan. (JEREMÍAS PEPE) Dragon Disclaimer: Dragon Disclaimer: This electronic medical record was generated, in whole or in part, using a voice recognition dictation system. (JEREMÍAS PEPE) Attending Co-Sign The patient was seen and interviewed as well as examined at the bedside. The chart was reviewed. The case was discussed. Agree with the plan of care. (LALITHA MOYA DO) Departure Departure: Impression: Primary Impression: Migraine aura, persistent, with status migrainosus Additional Impression: ICAO (internal carotid artery occlusion) Qualified Codes: I65.22 - Occlusion and stenosis of left carotid artery Disposition: HOME / SELF CARE / HOMELESS Condition: STABLE Referrals: SHAHID CANTU MD (PCP) Patient Instructions: Recurrent Migraine Headache, [id number] Additional Instructions: As discussed, continue to follow with the neurologist and/or neurosurgeon of your choice. Please return to the emergency department if your symptoms worsen or you develop new symptoms. Scripts Orphenadrine Citrate (ORPHENADRINE CITRATE) 100 Mg Tablet.er 1 TAB PO Q12HR for muscle spasm, #20 TAB 1 Refill Prov: JEREMÍAS PEPE 05/21/21 Ondansetron (ONDANSETRON ODT) 4 Mg Tab.rapdis 1 TAB PO PRN Q6-8HRS for nausea, #20 TAB Prov: JEREMÍAS PEPE 05/21/21 Rizatriptan Benzoate (MAXALT) 10 Mg Tablet 1 TAB PO PRN 1-2XD PRN for MIGRAINE HEADACHE, #10 TAB 2 Refills Take 1 tablet by mouth daily as needed for migraine headache. May take one additional dose after 1 hour if symptoms do not resolve. Prov: JEREMÍAS PEPE 05/21/21 JEREMÍAS PEPE May 21, 2021 18:24 LALITHA MOYA DO May 22, 2021 20:55
[2021-05-21] MEDS ORDERED: ONDA4TAB12 PO (18:40)
[2021-05-21] MEDS ORDERED: ORPH-16 PO (18:40)
[2021-05-21] MEDS ORDERED: RIZA10TA PO (18:40)
[2021-05-21] MEDS ORDERED: ORPHENADRINE CITRATE 60 MG/2 ML VIAL. IV ONE (18:45)
[2021-05-21] MEDS ORDERED: METOCLOPRAMIDE HCL 10 MG/2 ML VIAL. IVP ONE (18:45)
[2021-05-21 19:13] VITALS: BP 126/78
== END 2021-05-21 20:07 | disposition home or self-care (01) ==
LOC: ER 16:07
DX: G43.909 Migraine, unspecified, not intractable, without status migrainosus (principal); I65.22 Occlusion and stenosis of left carotid artery; J45.909 Unspecified asthma, uncomplicated; F41.9 Anxiety disorder, unspecified; F17.210 Nicotine dependence, cigarettes, uncomplicated; G43.501 Persistent migraine aura without cerebral infarction, not intractable, with status migrainosus
CPT/HCPCS: 36415; 70450; 70496; 70498; 80053; 85025; 96372; 96374; 96375; 99285; J1200; J2360; J2765; J3030; Q9967

== ENCOUNTER → 2021-06-05 | Outpatient (CLI) | payer OTHER ==
[2021-05-21 19:13] VITALS: BP 126/78
[~2021-06-05] MED LIST changes: +ORPH-16 PO; +RIZA10TA PO
[2021-06-05 15:55] LABS: BASO % 0 % (0-3); EOS % 0 % (0-3); HEMATOCRIT 38.1 % (36.0-47.0); HEMOGLOBIN 12.4 g/dL (12.0-15.5); LYMPH # 2.4 x10^3/uL (1.0-4.8); LYMPH % 51 % (24-48); MEAN CORPUSCULAR HEMOGLOBIN 30 pg (25-35); MEAN CORPUSCULAR HGB CONC 33 g/dL (31-37); MEAN CORPUSCULAR VOLUME 93 fL (79-100); MONO # 0.4 x10^3/uL (0.0-1.1); MONO % 8 % (0-9); NEUT # 1.9 x10^3uL (1.8-7.7); NEUT % 40 % (31-73); PLATELET COUNT 190 x10^3/uL (140-400); RED BLOOD COUNT 4.08 x10^6/uL (3.50-5.40); RED CELL DISTRIBUTION WIDTH 12.1 % (11.5-14.5); WHITE BLOOD COUNT 4.7 x10^3/uL (4.0-11.0)
== END ==
LOC: LAB 15:07
PROVIDERS: ATTEND Internal Medicine Gastroenterology
DX: K92.1 Melena (principal)
CPT/HCPCS: 36415; 85025

== ENCOUNTER 2021-07-10 11:49 | Emergency (ER) | payer OTHER ==
[~2021-07-10] VITALS: Ht 163.8 cm; Wt 59.2 kg
[2021-07-10 12:11] VITALS: BP 139/71
[2021-07-10] MEDS ORDERED: PROCHLORPERAZINE 10 MG/2 ML VIAL. IM ONE (12:15)
[2021-07-10] MEDS ORDERED: KETOROLAC 60 MG/2 ML VIAL. IM ONE (12:15)
[2021-07-10] MEDS ORDERED: diphenhydrAMINE 50 MG/ML VIAL IM ONE (12:15)
--- NOTE | 2021-07-10 12:19 | PHYS DOC ---
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, strokes(neck pains),brain aneurism, pit tumor Past Surgical History: No Surgical History Smoking: Cigarettes Alcohol Use: None Drug Use: None, Marijuana Adult General Chief Complaint Chief Complaint: HEADACHE HPI HPI Patient is a 26-year-old female patient with history of lupus, fibromyalgia, migraine headaches, 2 strokes, an aneurysm in her neck that she reports is healing presenting the ED today complaining of 10 out of 10 left-sided migraine headache, symptoms have been going on intermittently for seven days worse this morning, patient states she routinely gets migraine cocktail in the ED for her symptoms. Denies any vomiting but reports nausea, and phophobia. Denies any dizziness. Reports her current headache is consistent with a normal migraine headache for her. Review of Systems Review of Systems Constitutional: Denies fever or chills [] Eyes: Denies change in visual acuity, redness, or eye pain [] HENT: Denies nasal congestion or sore throat [] Respiratory: Denies cough or shortness of breath [] Cardiovascular: No additional information not addressed in HPI [] GI: Reports nausea. Denies abdominal pain, vomiting, bloody stools or diarrhea [] : Denies dysuria or hematuria [] Musculoskeletal: Denies back pain or joint pain [] Integument: Denies rash or skin lesions [] Neurologic: Reports migraine headache, photophobia, denies focal weakness or sensory changes [] All other systems were reviewed and found to be within normal limits, except as documented in this note. Current Medications Current Medications Current Medications Medications (Trade) Dose Ordered Sig/Nacho Start Time Stop Time Status Last Admin Dose Admin Diphenhydramine HCl (Benadryl) 25 mg 1X ONCE 07/10/21 12:15 07/10/21 12:16 UNV Ketorolac Tromethamine (Toradol Im) 60 mg 1X ONCE 07/10/21 12:15 07/10/21 12:16 UNV Prochlorperazine Edisylate (Compazine) 10 mg 1X ONCE 07/10/21 12:15 07/10/21 12:16 UNV Allergies Allergies Allergies Coded Allergies Type Severity Reaction Last Updated Verified No Known Drug Allergies 04/28/21 No Physical Exam Physical Exam Constitutional: Well developed, well nourished, no acute distress, non-toxic appearance. [] HENT: Normocephalic, atraumatic, bilateral external ears normal, oropharynx moist, no oral exudates, nose normal. [] Eyes: PERRLA, EOMI, conjunctiva normal, no discharge. [] Neck: Normal range of motion, no tenderness, supple, no stridor. [] Cardiovascular:Heart rate regular rhythm, no murmur [] Lungs & Thorax: Bilateral breath sounds clear to auscultation [] Abdomen: Bowel sounds normal, soft, no tenderness, no masses, no pulsatile masses. [] Skin: Warm, dry, no erythema, no rash. [] Back: No tenderness, no CVA tenderness. [] Extremities: No tenderness, no cyanosis, no clubbing, ROM intact, no edema. [] Neurologic: Alert and oriented X 3, normal motor function, normal sensory function, no focal deficits noted. Cranial nerves II through XII intact Psychologic: Affect normal, judgement normal, mood normal. [] EKG EKG [] Radiology/Procedures Radiology/Procedures [] Heart Score C/O Chest Pain: N/A Risk Factors: Risk Factors: DM, Current or recent (<one month) smoker, HTN, HLP, family history of CAD, obesity. Risk Scores: Risk Factors: DM, Current or recent (<one month) smoker, HTN, HLP, family history of CAD, obesity. Course & Med Decision Making Course & Med Decision Making Pertinent Labs and Imaging studies reviewed. (See chart for details) This is a 26-year-old female patient well-known to this ED presenting today complaining of a chronic migraine headache. Patient states there is nothing unusual about her headache today. She is requesting a migraine cocktail which was given in the ED with good relief and discharged to home. F/u with PCP [facility] Disclaimer Dragon Disclaimer This electronic medical record was generated, in whole or in part, using a voice recognition dictation system. Departure Departure: Impression: Primary Impression: Migraine headache Disposition: HOME / SELF CARE / HOMELESS Condition: STABLE Referrals: SHAHID CANTU MD (PCP) follow up next week Patient Instructions: Migraine Headache, [id number] Additional Instructions: You were evaluated in the emergency room for chronic migraine headaches. Please follow-up with your primary care doctor and neurologist next week. Scripts Promethazine Hcl (PROMETHAZINE HCL) 25 Mg Tablet 1 TAB PO PRN Q6HRS, #20 TAB Prov: NILDA GOFF APRN 07/10/21 Butalb/Acetaminophen/Caffeine ([id number] CP) 1 Each Capsule 1 CAP PO TID for 30 Days, #90 CAP 0 Refills Prov: NILDA GOFF APRN 07/10/21 Problem Qualifiers Primary Impression: Migraine headache Migraine type: without aura Status migrainosus presence: without status migrainosus Intractability: not intractable Qualified Codes: G43.009 - Migraine without aura, not intractable, without status migrainosus NILDA GOFF APRN Jul 10, 2021 12:19
[2021-07-10] MEDS ORDERED: PROM25TA10 PO (12:23)
[2021-07-10] MEDS ORDERED: BUTA1CAP27 PO (12:23)
== END 2021-07-10 12:47 | disposition home or self-care (01) ==
LOC: ER 11:54
DX: G43.909 Migraine, unspecified, not intractable, without status migrainosus (principal); J45.909 Unspecified asthma, uncomplicated; F17.210 Nicotine dependence, cigarettes, uncomplicated
CPT/HCPCS: 96372; 99284; J0780; J1200; J1885

== ENCOUNTER 2021-07-15 01:12 | Emergency (ER) | payer OTHER ==
[~2021-07-15] VITALS: Ht 163.8 cm; Wt 62.0 kg
[~2021-07-15 01:12] MED LIST changes: +BUTA1CAP27 PO; +PROM25TA10 PO
--- NOTE | 2021-07-15 01:22 | PHYS DOC ---
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 States her last migraine was almost a week ago which she came into the emergency department for and got a migraine cocktail which resolved her symptoms. States she gets several migraines a month. Denies any recent traumas, travels, illnesses, fevers, neck pain, chest pain, shortness of breath, abdominal pain. States that she does have some nausea but no vomiting. Denies any numbness/weakness/tingling. Denies any trouble sitting standing or walking. Review of Systems Review of Systems Review of systems otherwise unremarkable except noted in HPI Allergies Allergies Allergies Coded Allergies Type Severity Reaction Last Updated Verified No Known Drug Allergies 04/28/21 No Physical Exam Physical Exam Constitutional: Well developed, well nourished, no acute distress, non-toxic appearance. [] HENT: Normocephalic, atraumatic, bilateral external ears normal, oropharynx moist, no oral exudates, nose normal. [] Eyes: PERRLA, EOMI, conjunctiva normal, no discharge. [] Neck: Normal range of motion, no tenderness, supple, no stridor. [] Cardiovascular:Heart rate regular rhythm, no murmur [] Lungs & Thorax: Bilateral breath sounds clear to auscultation [] Abdomen: soft, no tenderness, no masses, no pulsatile masses. [] Skin: Warm, dry, no erythema, no rash. [] Back: No tenderness, no CVA tenderness. [] Extremities: No tenderness, no cyanosis, no clubbing, ROM intact, no edema. [] Neurologic: Alert and oriented X 3, normal motor function, normal sensory function, able to sit, stand and walk without issue, no focal deficits noted. [] Psychologic: Affect normal, judgement normal, mood normal. [] EKG EKG [] Radiology/Procedures Radiology/Procedures [] Heart Score C/O Chest Pain: No Risk Factors: Risk Factors: DM, Current or recent (<one month) smoker, HTN, HLP, family hist ory of CAD, obesity. Risk Scores: Risk Factors: DM, Current or recent (<one month) smoker, HTN, HLP, family history of CAD, obesity. Course & Med Decision Making Course & Med Decision Making Patient is a 26-year-old female who presents with a chief complaint of migraine Vital signs not concerning. Physical exam noted above. Given migraine cocktail. On reassessment patient feeling better, symptoms resolved and was ready to be discharged home. Discussed symptom management at home. Advised to follow-up in the morning with her primary care physician. Gave return precautions to the ED. Patient grateful, verbalized understanding and agreed with plan of discharge. [] Dragon Disclaimer Dragon Disclaimer This electronic medical record was generated, in whole or in part, using a voice recognition dictation system. Departure Departure: Impression: Primary Impression: Headache Disposition: HOME / SELF CARE / HOMELESS Condition: GOOD Referrals: SHAHID CANTU MD (PCP) Patient Instructions: General Headache Without Cause, Migraine Headache Additional Instructions: Thank you for coming into the emergency department tonight and allowing us to take care of you. Please read the attached information carefully to go back over some of the things we discussed. You can continue a Tylenol, ibuprofen and Benadryl regimen at home as we discussed taking 800 mg of ibuprofen every 8 hours, 1000 mg of Tylenol every 8 hours and 50 mg of Benadryl every 6 hours as long as you can tolerate all of these and are not allergic. Please follow-up in the morning with your primary care physician update on ED visit. Please come back to the ED with new or concerning symptoms as we discussed. JOSETTE VILLALPANDO MD Jul 15, 2021 01:22
[2021-07-15] MEDS ORDERED: diphenhydrAMINE HCL 25 MG CAPSULE PO ONE (01:30)
[2021-07-15] MEDS ORDERED: PROCHLORPERAZINE 10 MG/2 ML VIAL. IM ONE (01:30)
[2021-07-15] MEDS ORDERED: KETOROLAC 60 MG/2 ML VIAL. IM ONE (01:30)
[2021-07-15 02:56] VITALS: BP 110/61
== END 2021-07-15 03:00 | disposition home or self-care (01) ==
LOC: ER 01:12
DX: G43.909 Migraine, unspecified, not intractable, without status migrainosus (principal); J45.909 Unspecified asthma, uncomplicated; M79.7 Fibromyalgia; F41.9 Anxiety disorder, unspecified; F17.210 Nicotine dependence, cigarettes, uncomplicated
CPT/HCPCS: 81025; 96372; 99284; J0780; J1885; Q0163

== ENCOUNTER 2021-07-21 11:15 | Emergency (ER) | payer OTHER ==
[~2021-07-21] VITALS: Ht 163.8 cm; Wt 62.0 kg
[2021-07-21 11:20] VITALS: BP 150/90
[2021-07-21] MEDS ORDERED: BENZOCAINE ONE 20% MUCOSAL SPRAY. MM (11:45)
[2021-07-21] MEDS ORDERED: KETOROLAC 60 MG/2 ML VIAL. IM ONE (11:45)
[2021-07-21] MEDS ORDERED: oxyCODONE/APAP 5/325 1 TAB TABLET PO ONE (11:45)
--- NOTE | 2021-07-21 11:49 | PHYS DOC ---
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 Patient states that she is planning to have 7 teeth removed by her dentist in 8 days. Denies any purulent drainage or injury to her teeth. Says the pain radiates to both side of her face. Her dentist started her on amoxicillin and she is on day 3 but not getting any better. Denies any systemic complaints or throat pain. Review of Systems: Review of Systems: All other systems within normal limits except for as noted in the HPI Allergies: Allergies: Allergies Coded Allergies Type Severity Reaction Last Updated Verified No Known Drug Allergies 04/28/21 No Physical Exam: PE: Constitutional: Well developed, well nourished, no acute distress, non-toxic appearance. [] HENT: Normocephalic, atraumatic, bilateral external ears normal, nose normal. Left TM normal, tenderness over jaw, no swelling or lymphadenopathy, multiple dental caries, tenderness to palpation teeth, no mucosal lesions, no abnormality of gingiva or fluctuance. [] Eyes: PERRLA, conjunctiva normal, no discharge. [] Neck: No rigidity, supple, no stridor. [] Cardiovascular: Regular rate and rhythm, brisk cap refill [] Lungs & Thorax: Non labored symmetric respirations, no tachypnea or respiratory distress [] Abdomen: Soft, nondistended. Skin: Warm, dry, no erythema, no rash. [] Back: Unremarkable Extremities: No deformities, range of motion grossly intact, no lower extremity edema [] Neurologic: Alert and oriented X 3, no focal deficits noted. [] Psychologic: Affect normal, judgement normal, mood normal. [] Current Patient Data: Vital Signs: Vital Signs Date Time Temp Pulse Resp B/P (MAP) Pulse Ox O2 Delivery O2 Flow Rate FiO2 07/21/21 11:20 98.1 110 18 150/90 (110) 100 Room Air EKG: EKG: [] Radiology/Procedures: Radiology/Procedures: [] Heart Score: C/O Chest Pain: No Risk Factors: Risk Factors: DM, Current or recent (<one month) smoker, HTN, HLP, family history of CAD, obesity. Risk Scores: Score 0 - 3: 2.5% MACE over next 6 weeks - Discharge Home Score 4 - 6: 20.3% MACE over next 6 weeks - Admit for Clinical Observation Score 7 - 10: 72.7% MACE over next 6 weeks - Early Invasive Strategies Course & Med Decision Making: Course & Med Decision Making Pertinent Labs and Imaging studies reviewed. (See chart for details) [facility] patient is a chronic pain patient and was prescribed a 30-day supply of oxycodone 20 days ago. Patient states she has not been taking them as prescribed has been taking more. And is currently out of her pain medications. Discussed with patient that we will change the antibiotic to a broader spectrum, will give 1 dose of pain medicine in the emergency department instructed to follow-up with her primary provider for narcotic pain management [] Dragon Disclaimer: Dragon Disclaimer: This electronic medical record was generated, in whole or in part, using a voice recognition dictation system. Departure Departure: Impression: Primary Impression: Infected dental caries Disposition: HOME / SELF CARE / HOMELESS Condition: STABLE Referrals: SHAHID CANTU MD (PCP) Patient Instructions: Carbamide Peroxide dental solution Scripts Amoxicillin/Potassium Clav (AUGMENTIN 875-125 TABLET) 1 Each Tablet 1 TAB PO BID for antibiotic for 10 Days, #20 TAB 0 Refills Prov: CRISTA HAWKINS MD 07/21/21 CRISTA HAWKINS MD Jul 21, 2021 11:48
[2021-07-21] MEDS ORDERED: AMOX1TAB61 PO (12:10)
== END 2021-07-21 12:22 | disposition home or self-care (01) ==
LOC: ER 11:15
DX: K02.9 Dental caries, unspecified (principal); J45.909 Unspecified asthma, uncomplicated; M79.7 Fibromyalgia; G43.909 Migraine, unspecified, not intractable, without status migrainosus; F17.210 Nicotine dependence, cigarettes, uncomplicated; Z86.73 Personal history of transient ischemic attack (TIA), and cerebral infarction without residual deficits
CPT/HCPCS: 96372; 99283; J1885

== ENCOUNTER → 2021-09-23 | Outpatient (CLI) | payer OTHER ==
[~2021-09-23] MED LIST changes: +AMOX1TAB61 PO
[2021-09-23 09:41] LABS: BASO % 0 % (0-3); EOS # 0.1 x10^3/uL (0.0-0.7); EOS % 1 % (0-3); HEMATOCRIT 38.4 % (36.0-47.0); HEMOGLOBIN 12.5 g/dL (12.0-15.5); LYMPH # 2.1 x10^3/uL (1.0-4.8); LYMPH % 44 % (24-48); MEAN CORPUSCULAR HEMOGLOBIN 30 pg (25-35); MEAN CORPUSCULAR HGB CONC 33 g/dL (31-37); MEAN CORPUSCULAR VOLUME 93 fL (79-100); MONO # 0.4 x10^3/uL (0.0-1.1); MONO % 8 % (0-9); NEUT # 2.3 x10^3uL (1.8-7.7); NEUT % 47 % (31-73); PLATELET COUNT 211 x10^3/uL (140-400); RED BLOOD COUNT 4.12 x10^6/uL (3.50-5.40); RED CELL DISTRIBUTION WIDTH 12.3 % (11.5-14.5); WHITE BLOOD COUNT 4.9 x10^3/uL (4.0-11.0)
== END ==
LOC: LAB 09:05
PROVIDERS: ATTEND Hospitalist
DX: D64.9 Anemia, unspecified (principal)
CPT/HCPCS: 36415; 85025

== ENCOUNTER 2021-10-17 20:27 | Emergency (ER) | payer OTHER ==
[~2021-10-17] VITALS: Ht 163.8 cm; Wt 62.0 kg
[2021-10-17 20:44] VITALS: BP 129/90
--- NOTE | 2021-10-17 20:57 | PHYS DOC ---
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 Denies nausea and vomiting. Patient is complaining of light sensitivity. Patient has a history of migraine headaches. Patient took Benadryl, ibuprofen, and Phenergan at home to help with symptoms. Patient reports her headache has been for the last 2 weeks. Denies thunderclap, denies worst headache of her life. Migraine is the only medical history. (KRYSTAL DHILLON APRN) Review of Systems: Review of Systems: ROS At least 10 ROS systems have been reviewed and are negative except as documented in the HPI. General: Negative except as outlined in HPI above. Skin: Negative except as outlined in HPI above. HEENT: Negative except as outlined in HPI above. Neck: Negative except as outlined in HPI above. Respiratory: Negative except as outlined in HPI above.. Cardiovascular: Negative except as outlined in HPI above. Abdomen: Negative except as outlined in HPI above. : Negative except as outlined in HPI above. Back/MSK: Negative except as outlined in HPI above. Neuro: Negative except as outlined in HPI above. Psych: Negative except as outlined in HPI above. (KRYSTAL DHILLON APRN) Allergies: Allergies: Allergies Coded Allergies Type Severity Reaction Last Updated Verified No Known Drug Allergies 04/28/21 No (KRYSTAL DHILLON APRN) Physical Exam: PE: Constitutional: Well developed, well nourished, no acute distress, non-toxic appearance. [] HENT: bilateral external ears normal, oropharynx moist, no oral exudates, nose normal. [] Eyes: PERRLA, conjunctiva normal, no discharge. [] Neck: Normal range of motion, no tenderness, supple, no stridor. [] Cardiovascular:Heart rate regular rhythm, no murmur [] Lungs & Thorax: Bilateral breath sounds clear to auscultation [] Abdomen: Bowel sounds normal, soft, no tenderness, no masses, no pulsatile masses. [] Skin: Warm, dry, no erythema, no rash. [] Back: No tenderness, no CVA tenderness. [] Extremities: No tenderness, no cyanosis, no clubbing, ROM intact, no edema. [] Neurologic: Alert and oriented X 3, normal motor function, normal sensory function, no focal deficits noted. [] Psychologic: Affect normal, judgement normal, mood normal. [] (KRYSTAL DHILLON APRN) Current Patient Data: Vital Signs: Vital Signs Date Time Temp Pulse Resp B/P (MAP) Pulse Ox O2 Delivery O2 Flow Rate FiO2 10/17/21 20:44 98.0 91 18 129/90 (103) 99 Room Air (KRYSTAL DHILLON APRN) EKG: EKG: [] (KRYSTAL DHILLON APRN) Radiology/Procedures: Radiology/Procedures: [] (KRYSTAL DHILLON APRN) Heart Score: C/O Chest Pain: No Risk Factors: Risk Factors: DM, Current or recent (<one month) smoker, HTN, HLP, family history of CAD, obesity. Risk Scores: Score 0 - 3: 2.5% MACE over next 6 weeks - Discharge Home Score 4 - 6: 20.3% MACE over next 6 weeks - Admit for Clinical Observation Score 7 - 10: 72.7% MACE over next 6 weeks - Early Invasive Strategies (KRYSTAL DHILLON APRN) Course & Med Decision Making: Course & Med Decision Making Pertinent Labs and Imaging studies reviewed. (See chart for details) [] 26-year-old female presents with migraine headache. Patient has taken ibuprofen, Benadryl, Phenergan prior to arrival. Patient states her headache has been for the last 2 weeks. Patient has a history of migraines. Denies thunderclap, denies worst headache of her life. Patient given IV Benadryl, Zofran, Toradol. Patient instructed to follow-up with PCP for further migraine management. Advised patient to take drink plenty of fluids. Return to the emergency room with worsening symptoms or concerns. (KRYSTAL DHILLON APRN) Dragon Disclaimer: Dragon Disclaimer: This electronic medical record was generated, in whole or in part, using a voice recognition dictation system. (KRYSTAL DHILLON APRN) Departure Departure: Impression: Primary Impression: Migraine headache Qualified Codes: G43.909 - Migraine, unspecified, not intractable, without status migrainosus Disposition: HOME / SELF CARE / HOMELESS Condition: STABLE Referrals: SHAHID CANTU MD (PCP) Patient Instructions: Recurrent Migraine Headache Additional Instructions: You were given Toradol, Benadryl, Zofran for treatment of your migraine. Please follow-up with your PCP for further management of your chronic migraines. Make sure you are drinking plenty of fluids at home. Return to emergency room if you have worsening symptoms or concerns. EMERGENCY DEPARTMENT GENERAL DISCHARGE INSTRUCTIONS Thank you for coming to [facility] (ED) today and trusting us with you care. We trust that you had a positivie experience in our Emergency Department. If you wish to speak to the department management, you may call the director at [phone]. YOUR FOLLOW UP INSTRUCTIONS ARE FOLLOWS: 1. Do you have a private Doctor? If you do not have a private doctor, please ask for a resource list of physicians or clinics that may be able to assist you with follow up care. 2. The Emergency Physician has interpreted your x-rays. The X-Ray specialist will also review them. If there is a change in the findings, you will be notified in 48 hours when at all possible. 3. A lab test or culture has been done, your results will be reviewed and you will be notified if you need a change in treatment. ADDITIONAL INSTRUCTIONS AND INFORMATION: 1. Your care today has been supervised by a physician who is specially trained in emergency care. Many problems require more than one evaluation for a complete diagnosis a nd treatment. We recommend that you schedule your follow up appointment as recommended to ensure complete treatment of you illness or injury. If you are unable to obtain follow up care and continue to have a problem, or if your condition worsens, we recommend that you return to the ED. 2. We are not able to safely determine your condition over the phone nor are we able to give sound medical advice over the phone. For these safety reasons, if you call for medical advice we will ask you to come to the ED for further evaluation. 3. If you have any questions regarding these discharge instructions please call the ED at [phone]. SAFETY INFORMATION: In the interest of safety, wellness, and injury prevention; we encourage you to wear your sealbelt, if you smoke; quite smoking, and we encourage family to use a protective helmet for bicycling and other sporting events that present an increased risk for head injury. IF YOUR SYMPTOMS WORSEN OR NEW SYMPTOMS DEVELOP, OR YOU HAVE CONCERNS ABOUT YOUR CONDITION; OR IF YOUR CONDITION WORSENS WHILE YOU ARE WAITING FOR YOUR FOLLOW UP APPOINTMENT; EITHER CONTACT YOUR PRIMARY CARE DOCTOR, THE PHYSICIAN WHOSE NAME AND NUMBER YOU WERE GIVEN, OR RETURN TO THE ED IMMEDIATELY. Dragon Disclaimer This chart was dictated in whole or in part using Voice Recognition software in a busy, high-work load, and often noisy Emergency Department environment. It may contain unintended and wholly unrecognized errors or omissions. (ANTONIO CHAWLA MD) Attending Signature Attending Signature I have participated in the care of this patient and I have reviewed and agree with all pertinent clinical information above including history, exam, and recommendations. (ANTONIO CHAWLA MD) KRYSTAL DHILLON APRN Oct 17, 2021 20:57 ANTONIO CHAWLA MD Oct 18, 2021 00:04
[2021-10-17] MEDS ORDERED: ONDANSETRON PF 4 MG/2 ML VIAL. IVP ONE (21:00)
[2021-10-17] MEDS ORDERED: KETOROLAC 15 MG/ML VIAL. IVP ONE (21:00)
[2021-10-17] MEDS ORDERED: diphenhydrAMINE 50 MG/ML VIAL IVP ONE (21:00)
[2021-10-17] MEDS ORDERED: MORPHINE SULFATE 4 MG/ML DISP.SYRIN. IV ONE (21:45)
== END 2021-10-17 21:57 | disposition home or self-care (01) ==
LOC: ER 20:27
DX: G43.909 Migraine, unspecified, not intractable, without status migrainosus (principal); F41.9 Anxiety disorder, unspecified; J45.909 Unspecified asthma, uncomplicated; M79.7 Fibromyalgia; F17.210 Nicotine dependence, cigarettes, uncomplicated; Z86.73 Personal history of transient ischemic attack (TIA), and cerebral infarction without residual deficits
CPT/HCPCS: 81025; 96374; 96375; 99284; J1200; J1885; J2270; J2405

== ENCOUNTER 2021-10-18 19:46 | Emergency (ER) | payer OTHER ==
[~2021-10-18] VITALS: Ht 163.8 cm; Wt 64.0 kg
--- NOTE | 2021-10-18 20:21 | PHYS DOC ---
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 I accidentally cut my finger on broken glass.. .. It was a glass that was in the dishwater and soapy water and I caught my little finger on.. it.." Patient is a 26 year old female who presents with above hx of laceration from broken glass. Laceration is approximately 1 cm between the web area of fifth and fourth finger right hand. Patient is right-hand dominant. Distal neurovascular appears intact. Patient states is been over 5 years since her last tetanus. Patient normally healthy. No recent travel. No severe ill contacts. Review of Systems: Review of Systems: Constitutional: Denies fever or chills Eyes: Denies change in visual acuity HENT: Denies nasal congestion or sore throat Respiratory: Denies cough or shortness of breath Cardiovascular: Denies chest pain or edema GI: Denies abdominal pain, nausea, vomiting, bloody stools or diarrhea : Denies dysuria Musculoskeletal: Denies back pain or joint pain Integument: Denies rash Neurologic: Denies headache, focal weakness or sensory changes Endocrine: Denies polyuria or polydipsia Lymphatic: Denies swollen glands Psychiatric: Denies depression or anxiety Family History: Family History: Noncontributory to presentation Current Medications: Current Meds: Current Medications Medications (Trade) Dose Ordered Sig/[facility] Start Time Stop Time Status Last Admin Dose Admin Lidocaine HCl (Lidocaine 2%) 20 ml 1X ONCE 10/18/21 20:30 10/18/21 20:31 UNV Allergies: Allergies: Allergies Coded Allergies Type Severity Reaction Last Updated Verified No Known Drug Allergies 04/28/21 No Physical Exam: PE: Constitutional: Well developed, well nourished, no acute distress, non-toxic appearance. [] HENT: Normocephalic, atraumatic, bilateral external ears normal, oropharynx moist, no oral exudates, nose normal. [] Eyes: PERRLA, EOMI, conjunctiva normal, no discharge. [] Neck: Normal range of motion, no tenderness, supple, no stridor. [] Cardiovascular:Heart rate regular rhythm, no murmur [] Lungs & Thorax: Bilateral breath sounds equal apex with scattered wheezes auscultation [] Abdomen: Bowel sounds normal, soft, no tenderness, no masses, no pulsatile masses. [] Skin: Warm, dry, no erythema, no rash. Laceration tween fourth and fifth finger right hand Back: No tenderness, no CVA tenderness. [] Extremities: No tenderness, no cyanosis, no clubbing, ROM intact, no edema. [] Neurologic: Alert and oriented X 3, normal motor function, normal sensory function, no focal deficits noted. [] Psychologic: Affect normal, judgement normal, mood normal. [] Current Patient Data: Labs: Laboratory Tests Test 10/18/21 19:09 POC Urine HCG, Qualitative hcg negative (Negative) Vital Signs: Vital Signs Date Time Temp Pulse Resp B/P (MAP) Pulse Ox O2 Delivery O2 Flow Rate FiO2 10/18/21 19:46 98.0 89 18 138/88 (105) 98 EKG: EKG: [] Radiology/Procedures: Radiology/Procedures: [] Heart Score: C/O Chest Pain: N/A Risk Factors: Risk Factors: DM, Current or recent (<one month) smoker, HTN, HLP, family history of CAD, obesity. Risk Scores: Score 0 - 3: 2.5% MACE over next 6 weeks - Discharge Home Score 4 - 6: 20.3% MACE over next 6 weeks - Admit for Clinical Observation Score 7 - 10: 72.7% MACE over next 6 weeks - Early Invasive Strategies Course & Med Decision Making: Course & Med Decision Making Pertinent Labs and Imaging studies reviewed. (See chart for details) Procedure note-laceration repair-laceration cleaned with Betadine and saline. Injected edge of laceration with 2% lidocaine. We irrigated laceration range of motion. Closed laceration with 4 simple sutures of 4-0 Prolene. Dressing with bacitracin and gauze. Patient keep laceration clean and dry. Sutures out in 10 days. Follow-up with primary care. Monitor for infection. Return if any concerns. Impression: 1. Laceration 1 cm right hand web between fingers 5 and 4 [] Dragon Disclaimer: Dragon Disclaimer: This electronic medical record was generated, in whole or in part, using a voice recognition dictation system. Departure Departure: Referrals: SHAHID CANTU MD (PCP) [place] Disclaimer This chart was dictated in whole or in part using Voice Recognition software in a busy, high-work load, and often noisy Emergency Department environment. It may contain unintended and wholly unrecognized errors or omissions. Dragon Disclaimer This chart was dictated in whole or in part using Voice Recognition software in a busy, high-work load, and often noisy Emergency Department environment. It may contain unintended and wholly unrecognized errors or omissions. Dragon Disclaimer This chart was dictated in whole or in part using Voice Recognition software in a busy, high-work load, and often noisy Emergency Department environment. It may contain unintended and wholly unrecognized errors or omissions. ANTONIO CHAWLA MD Oct 18, 2021 20:21
[2021-10-18] MEDS ORDERED: DIPHTH,PERTUSS(ACELL),TET TOX 0.5 ML DISP.SYRIN. VAX IM ONE (20:30)
[2021-10-18] MEDS ORDERED: LIDOCAINE 2% 20 ML VIAL. IJ ONE (20:30)
[2021-10-18] MEDS ORDERED: BACITRACIN ZINC TOPICAL OINT PACKET. TP ONE (20:30)
[2021-10-18 22:44] VITALS: BP 137/90
== END 2021-10-18 22:44 | disposition home or self-care (01) ==
LOC: ER 19:46
DX: S61.411A Laceration without foreign body of right hand, initial encounter (principal); F41.9 Anxiety disorder, unspecified; J45.909 Unspecified asthma, uncomplicated; M79.7 Fibromyalgia; G43.909 Migraine, unspecified, not intractable, without status migrainosus; F17.210 Nicotine dependence, cigarettes, uncomplicated; Z86.73 Personal history of transient ischemic attack (TIA), and cerebral infarction without residual deficits; W25.XXXA Contact with sharp glass, initial encounter; Y93.89 Activity, other specified; Y92.89 Other specified places as the place of occurrence of the external cause; Y99.8 Other external cause status
CPT/HCPCS: 12001; 81025; 90471; 90715; 99283; J2001

== ENCOUNTER 2021-11-14 01:58 | Emergency (ER) | payer OTHER ==
[~2021-11-14] VITALS: Ht 163.8 cm; Wt 64.0 kg
--- NOTE | 2021-11-14 02:02 | PHYS DOC ---
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 States she gets these chronically and has had several over the last few years. States she started getting a couple year since the age of 14. States that it almost always usually get large and tender and then open up and drain on their own and go away. States she does get quite a few ingrown hairs as well. Denies any recent traumas, travels, illnesses, fevers, chest pain, shortness of breath, abdominal pain, nausea, vomiting, diarrhea. Denies any vaginal bleeding, discharge or pain. Denies any history of STIs or concern thereof. Review of Systems Review of Systems Review of systems otherwise unremarkable except noted in HPI Allergies Allergies Allergies Coded Allergies Type Severity Reaction Last Updated Verified No Known Drug Allergies 04/28/21 No Physical Exam Physical Exam Constitutional: Well developed, well nourished, no acute distress, non-toxic appearance. [] HENT: Normocephalic, atraumatic, bilateral external ears normal, oropharynx moist, no oral exudates, nose normal. [] Neck: Normal range of motion, no tenderness, supple, no stridor. [] Cardiovascular:Heart rate regular rhythm, no murmur [] Lungs & Thorax: No respiratory distress Abdomen: soft, no tenderness, no masses, no pulsatile masses. : Left outer labia with mass of approximately 1 cm in circumference, indur ation and a small amount of apical fluctuance and mild tenderness with no erythema or excessive warmth. No extension into inside of the labia. Skin: Warm, dry, no erythema, no rash. [] Extremities: No tenderness, no cyanosis, no clubbing, ROM intact, no edema. [] Neurologic: Alert and oriented X 3, normal motor function, normal sensory function, no focal deficits noted. [] Psychologic: Affect normal, judgement normal, mood normal. [] EKG EKG [] Radiology/Procedures Radiology/Procedures [] Heart Score C/O Chest Pain: No Risk Factors: Risk Factors: DM, Current or recent (<one month) smoker, HTN, HLP, family history of CAD, obesity. Risk Scores: Risk Factors: DM, Current or recent (<one month) smoker, HTN, HLP, family history of CAD, obesity. Course & Med Decision Making Course & Med Decision Making Patient is a 26-year-old female who presents with outer left labial abscess Vital signs initially notable for sinus tachycardia which resolved in the ED. Physical exam noted above. Urine negative. Urinalysis not concerning. Given patient pain medicine. Started on antibiotics. Offered aspiration, but patient stated they usually drain on their own and would like to try antibiotics, pain medicine and warm compresses initially. Discussed sympt om management over the next couple of days. Advised to follow-up on Tuesday with primary care physician and set up ER follow-up for later in the week for reevaluation. Gave return precautions to the ED. Patient grateful, verbalized understanding and agreed with plan of discharge. [] Dragon Disclaimer Dragon Disclaimer This electronic medical record was generated, in whole or in part, using a voice recognition dictation system. Departure Departure: Impression: Primary Impression: Abscess Disposition: 01 HOME / SELF CARE / HOMELESS Condition: STABLE Referrals: SHAHID CANTU MD (PCP) Patient Instructions: Abscess Additional Instructions: Thank you for coming into the emergency department tonight and allowing us to take care of you. Please read the attached information carefully to go over thi ngs we discussed. Please take your antibiotics as prescribed and until gone. Please do not pinch, squeeze or stab the area and use hot compresses frequently until it comes to ahead and drained on its own. You can use ibuprofen, Tylenol and your prescription pain medicine for pain but please do not exceed 3000 mg of Tylenol daily. You can also add Benadryl 50 mg every 6 hours. After hot compresses, dry and put the bandage back on an you can also use ice at this time. Please do not use any chemicals on the area as this could damage her tissue. Please follow-up on Tuesday morning with your primary care physician update on your ED visit and set up an ER follow-up visit for reevaluation sometime next week. Please come back with new or concerning symptoms as we discussed. Scripts Hydrocodone Bit/Acetaminophen (HYDROCODONE-APAP 5-325 ) 1 Each Tablet 1 TAB PO PRN Q6HRS PRN for wound for 5 Days, #20 TAB 0 Refills Prov: JOSETTE VILLALPANDO MD 11/14/21 Clindamycin Hcl (CLINDAMYCIN HCL) 300 Mg Capsule 1 CAP PO TID for abscess, #21 CAP Prov: JOSETTE VILLALPANDO MD 11/14/21 JOSETTE VILLALPANDO MD Nov 14, 2021 02:02
[2021-11-14 02:12] VITALS: BP 115/72
[2021-11-14 03:01] LABS: BACTERIA,URINE 0 /HPF (0-FEW); CLARITY,URINE CLEAR; COLOR,URINE YELLOW; GLUCOSE,URINE NEG (NEG); NITRITE,URINE NEG (NEG); RBC,URINE 0 /HPF (0-2); SQUAMOUS EPITHELIAL CELL,UR MOD /LPF; UROBILINOGEN,URINE 0.2 mg/dL (0.2 mg/dL); WBC,URINE OCC /HPF (0-4)
[2021-11-14] MEDS ORDERED: CLIN-95 PO (03:14)
[2021-11-14] MEDS ORDERED: HYDR-2155 PO (03:14)
[2021-11-14] MEDS ORDERED: CLINDAMYCIN HCL 150 MG CAPSULE PO ONE (03:15)
[2021-11-14] MEDS ORDERED: oxyCODONE/APAP 5/325 1 TAB TABLET ONE (03:15)
[2021-11-14] MEDS ORDERED: CLINDAMYCIN HCL 150 MG CAPSULE ONE (03:15)
[2021-11-14] MEDS ORDERED: oxyCODONE/APAP 5/325 1 TAB TABLET PO ONE (03:15)
== END 2021-11-14 03:20 | disposition home or self-care (01) ==
LOC: ER 01:58
DX: N76.4 Abscess of vulva (principal); F41.9 Anxiety disorder, unspecified; J45.909 Unspecified asthma, uncomplicated; M79.7 Fibromyalgia; G43.909 Migraine, unspecified, not intractable, without status migrainosus; F17.210 Nicotine dependence, cigarettes, uncomplicated; Z86.73 Personal history of transient ischemic attack (TIA), and cerebral infarction without residual deficits
CPT/HCPCS: 81001; 81025; 99283